=== PATIENT | female | born 1955 | race Caucasian/White ===

== ENCOUNTER 2017-07-13 12:34 | Emergency (ER) | payer OTHER ==
[2017-07-13] MEDS ORDERED: IPRATROPIUM-ALBUTEROL 3 ML NEB INHALATION STA (13:42)
[2017-07-13] MEDS ORDERED: SODIUM CHLORIDE 0.9% 1,000 ML IV STA (13:42)
[2017-07-13] MEDS ORDERED: IBUPROFEN 600 MG TAB PO STA (13:43)
[2017-07-13] MEDS ORDERED: ACETAMINOPHEN TAB 500 MG TAB PO STA (13:43)
--- NOTE | 2017-07-13 13:44 | ED ---
Headache HPI - General Chief Complaint: Headache Stated Complaint: cough/headache/fever Time Seen by Provider: 07/13/17 13:11 Source: RN notes reviewed, old records reviewed Mode of arrival: ambulatory Limitations: no limitations - History of Present Illness Initial Comments: This patient 62-year-old female with multiple chief complaints. Patient reports that she's had a headache, sinus congestion, slight cough and some right side pain. Patient reports that when she is sleeping less and she had pain when she was laying on the right side. She is out of the pain is related to coughing. She states that she has had no recent Motrin or Tylenol. She reports that a couple episodes of diarrhea earlier. - Related Data Home Medications Medication Instructions Recorded Confirmed Alendronate Sodium [Fosamax] 70 mg PO SA 03/07/16 07/13/17 Atorvastatin Calcium [Lipitor] 20 mg PO SA 03/07/16 07/13/17 Ergocalciferol [Vitamin D2] 50,000 unit PO SA 03/07/16 07/13/17 Previous Rx's Medication Instructions Recorded Albuterol Inhaler [Ventolin Hfa 1 - 2 puff INHALATION Q6HR PRN #1 07/13/17 Inhaler] inhaler Levofloxacin [Levaquin] 750 mg PO DAILY #7 tab 07/13/17 Promethazine/Dextromethorphan 5 ml PO TID PRN #120 ml 07/13/17 [Phenergan DM Syrup] Allergies Allergy/AdvReac Type Severity Reaction Status Date / Time adhesive Allergy Rash/Hives Verified 07/13/17 12:56 bacitracin Allergy Rash/Hives Verified 07/13/17 12:56 [From Neosporin ([id number])] bacitracin zinc Allergy Rash/Hives Verified 07/13/17 12:56 [From Neosporin ([id number])] neomycin sulfate Allergy Rash/Hives Verified 07/13/17 12:56 [From Neosporin ([id number])] polymyxin B Allergy Rash/Hives Verified 07/13/17 12:56 [From Neosporin ([id number])] sulfamethoxazole Allergy Rash/Hives Verified 07/13/17 12:56 [From Bactrim] trimethoprim [From Bactrim] Allergy Rash/Hives Verified 07/13/17 12:56 Review of Systems ROS Statement: Those systems with pertinent positive or pertinent negative responses have been documented in the HPI. ROS Other: All systems not noted in ROS Statement are negative. Past Medical History Past Medical History: Asthma, COPD, Hyperlipidemia, Liver Disease, Osteoarthritis (OA), Rheumatoid Arthritis (RA) Additional Past Medical History / Comment(s): hx migraines, varicose veins, "fatty liver", gallstones, History of Any Multi-Drug Resistant Organisms: None Reported Past Surgical History: Breast Surgery, Section, Cholecystectomy, Orthopedic Surgery Additional Past Surgical History / Comment(s): june carpal tunnel, left breast lumpectomy, Past Anesthesia/Blood Transfusion Reactions: Motion Sickness Past Psychological History: No Psychological Hx Reported Smoking Status: Former smoker Past Alcohol Use History: None Reported Past Drug Use History: None Reported - Past Family History Mother Family Medical History: Cancer General Exam - General Exam Comments Initial Comments: This patient is 62-year-old female. No distress. Limitations: no limitations General appearance: alert, in no apparent distress Head exam: Present: atraumatic, normocephalic, normal inspection Eye exam: Present: normal appearance, PERRL, EOMI. Absent: scleral icterus, conjunctival injection, periorbital swelling ENT exam: Present: normal exam, mucous membranes moist Neck exam: Present: normal inspection. Absent: tenderness, meningismus, lymphadenopathy Respiratory exam: Present: normal lung sounds bilaterally. Absent: respiratory distress, wheezes, rales, rhonchi, stridor Cardiovascular Exam: Present: regular rate, normal rhythm, normal heart sounds, other (Right-sided chest wall tenderness.). Absent: systolic murmur, diastolic murmur, rubs, gallop, clicks GI/Abdominal exam: Present: soft, normal bowel sounds. Absent: distended, tenderness, guarding, rebound, rigid Back exam: Present: normal inspection Neurological exam: Present: alert, oriented X3, CN II-XII intact Psychiatric exam: Present: normal affect, normal mood Course Vital Signs 07/13/17 07/13/17 07/13/17 12:42 14:00 14:09 Temperature 99.4 F Pulse Rate 85 80 84 Respiratory 18 Rate Blood Pressure 121/67 O2 Sat by Pulse 97 Oximetry 07/13/17 07/13/17 07/13/17 15:09 15:50 16:34 Temperature 98.5 F Pulse Rate 76 72 68 Respiratory 20 18 18 Rate Blood Pressure 94/50 96/52 126/62 O2 Sat by Pulse 96 95 95 Oximetry Medical Decision Making - Medical Decision Making 62 year old with headache, cough, congestion, right side pain for 2 days. Patient has a productive cough, given breathing treatment, patient was given IV fluids and labs obtained. Patient CXR shows right sided pneumonia, likely source of patient pain with pleurisy. Patient labs were unremarkable, and patient was given IV Rocephin for pneumonia. Patient will be discharged with Levaquin and prompt follow up with PCP. Return parameters discussed. - Lab Data Result diagrams: 07/13/17 13:36 07/13/17 13:36 Lab Results 07/13/17 07/13/17 07/13/17 Range/Units 13:36 13:36 13:36 WBC 5.8 (3.8-10.6) k/uL RBC 4.51 (3.80-5.40) m/uL Hgb 12.6 (11.4-16.0) gm/dL Hct 39.1 (34.0-46.0) % MCV 86.7 (80.0-100.0) fL MCH 28.0 (25.0-35.0) pg MCHC 32.3 (31.0-37.0) g/dL RDW 13.2 (11.5-15.5) % Plt Count 233 (150-450) k/uL Neutrophils % 64 % Lymphocytes % 24 % Monocytes % 8 % Eosinophils % 2 % Basophils % 0 % Neutrophils # 3.7 (1.3-7.7) k/uL Lymphocytes # 1.4 (1.0-4.8) k/uL Monocytes # 0.4 (0-1.0) k/uL Eosinophils # 0.1 (0-0.7) k/uL Basophils # 0.0 (0-0.2) k/uL Sodium 140 (137-145) mmol/L Potassium 4.0 (3.5-5.1) mmol/L Chloride 105 (98-107) mmol/L Carbon Dioxide 25 (22-30) mmol/L Anion Gap 10 mmol/L BUN 11 (7-17) mg/dL Creatinine 0.97 (0.52-1.04) mg/dL Est GFR (CKD-EPI)AfAm 72 (>60 ml/min/1.73 sqM) Est GFR (CKD-EPI)NonAf 62 (>60 ml/min/1.73 sqM) Glucose 93 (74-99) mg/dL Calcium 9.3 (8.4-10.2) mg/dL Total Bilirubin 0.5 (0.2-1.3) mg/dL AST 33 (14-36) U/L ALT 31 (9-52) U/L Alkaline Phosphatase 110 (38-126) U/L Troponin I <0.012 (0.000-0.034) ng/mL Total Protein 7.2 (6.3-8.2) g/dL Albumin 3.9 (3.5-5.0) g/dL Urine Color Urine Appearance (Clear) Urine pH (5.0-8.0) Ur Specific [place] (1.001-1.035) Urine Protein (Negative) Urine Glucose (UA) (Negative) Urine Ketones (Negative) Urine Blood (Negative) Urine Nitrite (Negative) Urine Bilirubin (Negative) Urine Urobilinogen (<2.0) mg/dL Ur Leukocyte Esterase (Negative) Urine RBC (0-5) /hpf Urine WBC (0-5) /hpf Ur Squamous Epith Cells (0-4) /hpf Influenza Type A RNA (Not Detectd) Influenza Type B (PCR) (Not Detectd) 07/13/17 07/13/17 Range/Units 14:01 14:01 WBC (3.8-10.6) k/uL RBC (3.80-5.40) m/uL Hgb (11.4-16.0) gm/dL Hct (34.0-46.0) % MCV (80.0-100.0) fL MCH (25.0-35.0) pg MCHC (31.0-37.0) g/dL RDW (11.5-15.5) % Plt Count (150-450) k/uL Neutrophils % % Lymphocytes % % Monocytes % % Eosinophils % % Basophils % % Neutrophils # (1.3-7.7) k/uL Lymphocytes # (1.0-4.8) k/uL Monocytes # (0-1.0) k/uL Eosinophils # (0-0.7) k/uL Basophils # (0-0.2) k/uL Sodium (137-145) mmol/L Potassium (3.5-5.1) mmol/L Chloride (98-107) mmol/L Carbon Dioxide (22-30) mmol/L Anion Gap mmol/L BUN (7-17) mg/dL Creatinine (0.52-1.04) mg/dL Est GFR (CKD-EPI)AfAm (>60 ml/min/1.73 sqM) Est GFR (CKD-EPI)NonAf (>60 ml/min/1.73 sqM) Glucose (74-99) mg/dL Calcium (8.4-10.2) mg/dL Total Bilirubin (0.2-1.3) mg/dL AST (14-36) U/L ALT (9-52) U/L Alkaline Phosphatase (38-126) U/L Troponin I (0.000-0.034) ng/mL Total Protein (6.3-8.2) g/dL Albumin (3.5-5.0) g/dL Urine Color Light Yellow Urine Appearance Clear (Clear) Urine pH 6.5 (5.0-8.0) Ur Specific [place] 1.005 (1.001-1.035) Urine Protein Negative (Negative) Urine Glucose (UA) Negative (Negative) Urine Ketones Negative (Negative) Urine Blood Negative (Negative) Urine Nitrite Negative (Negative) Urine Bilirubin Negative (Negative) Urine Urobilinogen <2.0 (<2.0) mg/dL Ur Leukocyte Esterase Small H (Negative) Urine RBC 3 (0-5) /hpf Urine WBC 2 (0-5) /hpf Ur Squamous Epith Cells 2 (0-4) /hpf Influenza Type A RNA Not Detected (Not Detectd) Influenza Type B (PCR) Not Detected (Not Detectd) 07/13/17 14:49 EKG performed at 1411 shows normal sinus rhythm, normal EKG noted. Ventricular rate 78 beats were minute. DE interval 120 ms. QRS ration a formal 6. QT QTC 392/446 most seconds. - Radiology Data Radiology results: report reviewed Suspicious posterior right lower lobe new minute infiltrate. Disposition Clinical Impression: Pneumonia Disposition: HOME SELF-CARE Condition: Good Instructions: Pneumonia (ED) Additional Instructions: Patient is to follow-up on Saturday morning with primary care provider. Rest, remain hydrated. Take the antibiotics as prescribed. Return to the emergency department if any alarming signs or symptoms occur. Prescriptions: Albuterol Inhaler [Ventolin Hfa Inhaler] 1 - 2 puff INHALATION Q6HR PRN #1 inhaler PRN Reason: Cough Levofloxacin [Levaquin] 750 mg PO DAILY #7 tab Promethazine/Dextromethorphan [Phenergan DM Syrup] 5 ml PO TID PRN #120 ml PRN Reason: Cough Referrals: Elizabeth Esquivel DO [Primary Care Provider] - 1-2 days Time of Disposition: 16:04
[2017-07-13 13:54] LABS: Basophils % (A) 0 %; Eosinophils # (A) 0.1 k/uL (0-0.7); Eosinophils % (A) 2 %; HCT 39.1 % (34.0-46.0); HGB 12.6 gm/dL (11.4-16.0); Lymphocytes # (A) 1.4 k/uL (1.0-4.8); Lymphocytes % (A) 24 %; MCHC 32.3 g/dL (31.0-37.0); MCV 86.7 fL (80.0-100.0); Mean Platelet Volume 8.2; Monocytes # (A) 0.4 k/uL (0-1.0); Monocytes % (A) 8 %; Neutrophils # (A) 3.7 k/uL (1.3-7.7); Neutrophils % (A) 64 %; Platelet Count 233 k/uL (150-450); RBC 4.51 m/uL (3.80-5.40); RDW 13.2 % (11.5-15.5); WBC 5.8 k/uL (3.8-10.6)
[2017-07-13 14:02] LABS: Albumin 3.9 g/dL (3.5-5.0); Calcium 9.3 mg/dL (8.4-10.2); Total Bilirubin 0.5 mg/dL (0.2-1.3); Total Protein 7.2 g/dL (6.3-8.2)
[2017-07-13 14:14] LABS: Appearance,Urine Clear (Clear); Bilirubin,Urine Negative (Negative); Blood,Urine Negative (Negative); Color,Urine Light Yellow; Glucose,Urine (UA) Negative (Negative); Ketones,Urine Negative (Negative); Leukocyte Esterase,Urine Small (Negative); Nitrite,Urine Negative (Negative); PH, Urine 6.5 (5.0-8.0); Protein,Urine Negative (Negative); RBC,Urine 3 /hpf (0-5); Specific Gravity,Urine 1.005 (1.001-1.035); Squamous Epithelial Cell,Urine 2 /hpf (0-4); Urobilinogen,Urine <2.0 mg/dL (<2.0); WBC,Urine 2 /hpf (0-5)
--- NOTE | 2017-07-13 14:39 | XR ---
EXAMINATION TYPE: XR chest 2V DATE OF EXAM: 07/13/2017 COMPARISON: NONE HISTORY: Cough and fever. TECHNIQUE: Frontal and lateral views of the chest are obtained. FINDINGS: There is suspicious posterior right lower lobe opacity confirmed on 2 views. Left lung is clear. No pleural effusion or pneumothorax is seen bilaterally. The cardiac silhouette size is withi n normal limits. The osseous structures are intact. IMPRESSION: Suspicious posterior right lower lobe pneumonic infiltrate.
[2017-07-13] MEDS ORDERED: cefTRIAXone IN SWFI 1,000 MG/10 ML SYRINGE IVP STA (14:53)
[2017-07-13] MEDS ORDERED: methylPREDNISolone SOD SUCCI 125 MG/2 ML VIAL IV STA (15:02)
[2017-07-13 15:10] VITALS: TEMP 98.5
[2017-07-13 15:51] VITALS: RESP 18
[2017-07-13 16:35] VITALS: BP 126/62; PULSE 68
== END 2017-07-13 16:35 | disposition home or self-care (01) ==
LOC: EC 12:34
DX: J18.9 Pneumonia, unspecified organism (principal); R51 Headache; R09.81 Nasal congestion; R19.7 Diarrhea, unspecified; E78.5 Hyperlipidemia, unspecified; Z87.891 Personal history of nicotine dependence; Z79.899 Other long term (current) drug therapy; Z88.1 Allergy status to other antibiotic agents; Z91.09 Other allergy status, other than to drugs and biological substances
CPT/HCPCS: 36415; 94640; 93005; 80053; 84484; 85025; 81001; 87040; 87502; 71046; 99284; 96374; 96375; 96361; J2930; J0696

== ENCOUNTER → 2019-12-02 | Outpatient (CLI) | payer MEDICARE ==
[2019-12-02 11:18] LABS: Basophils % (A) 1 %; Eosinophils # (A) 0.2 k/uL (0-0.7); Eosinophils % (A) 4 %; HCT 39.2 % (34.0-46.0); HGB 12.8 gm/dL (11.4-16.0); Lymphocytes # (A) 1.1 k/uL (1.0-4.8); Lymphocytes % (A) 22 %; MCH 28.4 pg (25.0-35.0); MCHC 32.7 g/dL (31.0-37.0); MCV 86.6 fL (80.0-100.0); Mean Platelet Volume 8.3; Monocytes # (A) 0.4 k/uL (0-1.0); Monocytes % (A) 7 %; Neutrophils # (A) 3.3 k/uL (1.3-7.7); Neutrophils % (A) 65 %; Platelet Count 226 k/uL (150-450); RBC 4.52 m/uL (3.80-5.40); RDW 13.8 % (11.5-15.5); WBC 5.2 k/uL (3.8-10.6)
== END | disposition home or self-care (01) ==
LOC: LABPAT 09:53
PROVIDERS: ATTEND Surgery
DX: Z01.818 Encounter for other preprocedural examination (principal); K43.0 Incisional hernia with obstruction, without gangrene
CPT/HCPCS: 36415; 85025; 86850; 86900; 86901; 93005

== ENCOUNTER 2019-12-09 06:53 | Day surgery (SDC) | payer MEDICARE ==
[2019-12-03 12:59] VITALS: BMI 34.0
[~2019-12-09 06:53] MED LIST: ACETAMINOPHEN TAB 500 MG TAB PO ONE; HEPARIN SODIUM,PORCINE 5,000 UNIT/ML 1 ML VIAL SQ ONE; LACTATED RINGERS 1,000 ML IV SCH; ONDANSETRON 4 MG/2 ML VIAL IVP ONE
[2019-12-09] MEDS ORDERED: ACETAMINOPHEN TAB 500 MG TAB ONE (07:18)
[2019-12-09] MEDS ORDERED: HEPARIN SODIUM,PORCINE 5,000 UNIT/ML 1 ML VIAL ONE (07:18)
[2019-12-09] MEDS ORDERED: ONDANSETRON 4 MG/2 ML VIAL ONE (07:18)
[2019-12-09] MEDS ORDERED: DEXAMETHASONE SOD PHOSPHATE 10 MG/ML 1 ML VIAL IV ONE (07:39)
--- NOTE | 2019-12-09 08:23 | P.GSHP ---
History of Present Illness H&P Date: 12/09/19 Chief Complaint: Incisional hernia This is a 64-year-old female who has developed an incisional hernia related to laparoscopic cholecystectomy. Patient presents today for laparoscopic robotic- assisted repair. Past Medical History Past Medical History: Asthma, COPD, Hyperlipidemia, Liver Disease, Osteoarthritis (OA), Rheumatoid Arthritis (RA) Additional Past Medical History / Comment(s): hx migraines, varicose veins, "fatty liver", osteoporosis History of Any Multi-Drug Resistant Organisms: None Reported Past Surgical History: Breast Surgery, Section, Cholecystectomy, Orthopedic Surgery Additional Past Surgical History / Comment(s): june carpal tunnel, left breast lumpectomy, left hand index middle trigger finger, right hand, ring and middle trigger finger Past Anesthesia/Blood Transfusion Reactions: Motion Sickness Smoking Status: Former smoker - Past Family History Mother Family Medical History: Cancer Medications and Allergies Home Medications Medication Instructions Recorded Confirmed Type Alendronate Sodium [Fosamax] 70 mg PO SA 03/07/16 12/03/19 History Atorvastatin Calcium [Lipitor] 20 mg PO SA 03/07/16 12/03/19 History Albuterol Inhaler (Mhu) [Ventolin 1 - 2 puff INHALATION Q6HR PRN #1 07/13/17 12/03/19 Rx Hfa Inhaler (Mhu)] inhaler Cyclobenzaprine [Flexeril] 10 mg PO HS 12/02/19 12/03/19 History Loratadine [Claritin] 10 mg PO DAILY 12/02/19 12/03/19 History PARoxetine [Paxil] 10 mg PO DAILY 12/02/19 12/03/19 History Allergies Allergy/AdvReac Type Severity Reaction Status Date / Time adhesive Allergy Rash/Hives Verified 12/09/19 07:16 bacitracin Allergy Rash/Hives Verified 12/09/19 07:16 [From Neosporin ([id number])] bacitracin zinc Allergy Rash/Hives Verified 12/09/19 07:16 [From Neosporin ([id number])] neomycin sulfate Allergy Rash/Hives Verified 12/09/19 07:16 [From Neosporin ([id number])] polymyxin B Allergy Rash/Hives Verified 12/09/19 07:16 [From Neosporin ([id number])] sulfamethoxazole Allergy Rash/Hives Verified 12/09/19 07:16 [From Bactrim] trimethoprim [From Bactrim] Allergy Rash/Hives Verified 12/09/19 07:16 cortisone AdvReac rash @ Verified 12/09/19 07:16 injection site Surgical - Exam Vital Signs Temp Pulse Resp BP Pulse Ox 97.1 F L 77 14 133/82 99 12/09/19 07:16 12/09/19 07:16 12/09/19 07:16 12/09/19 07:16 12/09/19 07:16 - General well developed, well nourished, no distress - Eyes PERRL - ENT normal pinna - Neck no masses - Respiratory normal expansion - Cardiovascular Rhythm: regular - Abdomen Abdomen: soft, non tender Assessment and Plan Assessment: Incisional hernia. We'll perform laparoscopic robotic-assisted repair.
[2019-12-09] MEDS ORDERED: MIDAZOLAM 2 MG/2 ML VIAL ONE (08:49)
[2019-12-09] MEDS ORDERED: SUCCINYLCHOLINE CHLORIDE 100 MG/5 ML SYR IV ONE (08:49)
[2019-12-09] MEDS ORDERED: fentaNYL (PF) 50 MCG/ML 2 ML AMP ONE (08:49)
[2019-12-09] MEDS ORDERED: ROCURONIUM BROMIDE 10 MG/ML 5 ML VIAL IV ONE (08:49)
[2019-12-09] MEDS ORDERED: KETOROLAC 30 MG/ML 1 ML VIAL ONE (08:49)
[2019-12-09] MEDS ORDERED: GLYCOPYRROLATE 0.2 MG/ML 2 ML VIAL ONE (08:49)
[2019-12-09] MEDS ORDERED: NEOSTIGMINE 1 MG/ML 10 ML VIAL ONE (08:49)
[2019-12-09] MEDS ORDERED: LIDOCAINE 1% INJ 10MG/ML (20 ML MDV) ONE (08:49)
[2019-12-09] MEDS ORDERED: PROPOFOL 10 MG/ML 20 ML VIAL IV ONE (08:49)
[2019-12-09] MEDS ORDERED: KETAMINE 10 MG/ML 20 ML VIAL ONE (08:49)
[2019-12-09] MEDS ORDERED: LIDOCAINE 1%-EPI 1:100,000 20 ML VIAL SQ ONE ×2 (09:22)
[2019-12-09] MEDS ORDERED: LACTATED RINGERS 1,000 ML IV ONE (09:40)
--- NOTE | 2019-12-09 09:48 | P.OP ---
Date of Procedure: 12/09/19 Preoperative Diagnosis: Incisional hernia Postoperative Diagnosis: Incisional hernia Procedure(s) Performed: Laparoscopic robotic-assisted repair of incarcerated incisional hernia Anesthesia: WOLF Surgeon: Roberto Batres Estimated Blood Loss (ml): 5 Pathology: none sent Condition: stable Disposition: PACU Description of Procedure: The patient was placed on the operating table in the supine position. He received general anesthesia. His abdomen was prepped and draped usual fashion. The skin incision was made at the umbilicus. Using a pair of Jesús clamps the fascia was grasped and a Veress needles placed into the peritoneal cavity. Position there is no discomfort with positive drop test. After adequate insufflation the laparoscope was placed into the peritoneal cavity the through a 5 mm trocar. A 8 mm robotic trochars placed in the right lower and left lower quadrant. The initial 5 mm trocar was exchanged for a 12 mm robotic trocar. The incisional hernia was visualized. The hernias located the epigastric area. The incisional hernia was visualized. Using hook cautery the peritoneum over the incisional hernia was excised. The fascial opening was repaired using 0V LOC suture. Next a piece of 11 cm round ventral light ST mesh was placed into the. Cavity and secured with 2 OV lock suture. The patient was undocked the robot. The needles were retrieved. The fascia of the 12 mm trocar site was closed with 0 Ethibond suture. Skin was closed interrupted 3-0 Monocryl suture. Dermabond dressings was applied. Patient tolerated procedure well and was sent to recovery room stable condition.
[2019-12-09 10:12] VITALS: TEMP 96.8
[2019-12-09] MEDS: HYDROmorphone 0.5 MG/0.5 ML SYRINGE IVP PRN ×4 (10:41→11:12)
[2019-12-09 11:57] VITALS: RESP 16
[2019-12-09] MEDS ORDERED: HYDROcodone/APAP 5-325MG 1 EACH TAB ONE (11:59)
[2019-12-09] MEDS ORDERED: HYDROcodone/APAP 5-325MG 1 EACH TAB PO ONE (12:00)
[2019-12-09 12:40] VITALS: BP 119/76; PULSE 87
== END 2019-12-09 13:10 | disposition home or self-care (01) ==
LOC: OR 06:53
PROVIDERS: ATTEND Surgery
DX: K43.0 Incisional hernia with obstruction, without gangrene (principal); E78.5 Hyperlipidemia, unspecified; J44.9 Chronic obstructive pulmonary disease, unspecified; M06.9 Rheumatoid arthritis, unspecified; G43.909 Migraine, unspecified, not intractable, without status migrainosus; K76.0 Fatty (change of) liver, not elsewhere classified; M81.0 Age-related osteoporosis without current pathological fracture; I83.90 Asymptomatic varicose veins of unspecified lower extremity; Z91.048 Other nonmedicinal substance allergy status; Z88.2 Allergy status to sulfonamides; Z88.1 Allergy status to other antibiotic agents; Z88.8 Allergy status to other drugs, medicaments and biological substances; Z79.899 Other long term (current) drug therapy; Z90.49 Acquired absence of other specified parts of digestive tract; Z98.890 Other specified postprocedural states; Z87.891 Personal history of nicotine dependence; Z80.9 Family history of malignant neoplasm, unspecified
CPT/HCPCS: 86900; 86901; 86850; 49655; C1781; J2250; J1644; J1100; J2710; J0690; J2405; J2001; J3010; J1885; J0330; J2704; J1170

== ENCOUNTER → 2020-11-04 | Outpatient (CLI) | payer MEDICARE ==
--- NOTE | 2020-11-09 14:25 | MM ---
Reason for exam: screening (asymptomatic). Last mammogram was performed 4 years and 9 months ago. History: Patient is postmenopausal. Benign excisional biopsy of the left breast. Physical Findings: A clinical breast exam by your physician is recommended on an annual basis and results should be correlated with mammographic findings. MG 3D Screening Mammo W/Cad Bilateral CC and MLO view(s) were taken. Prior study comparison: February 06, 2016, bilateral MG screening mammo w CAD. There are scattered fibroglandular densities. No persisting abnormality on 3D images. No significant changes when compared with prior studies. ASSESSMENT: Benign, BI-RAD 2 RECOMMENDATION: Routine screening mammogram of both breasts in 1 year.
== END | disposition home or self-care (01) ==
LOC: RADMAMWWP 08:29
PROVIDERS: ATTEND Family Medicine
DX: Z12.31 Encounter for screening mammogram for malignant neoplasm of breast (principal); Z78.0 Asymptomatic menopausal state
CPT/HCPCS: 77063; 77067

== ENCOUNTER → 2021-03-02 | Outpatient (CLI) | payer MEDICARE ==
[~2021-03-02] MED LIST changes: -ACETAMINOPHEN TAB 500 MG TAB PO ONE; +DENOSUMAB 60 MG/ML 1 ML SYRINGE SQ NR; -HEPARIN SODIUM,PORCINE 5,000 UNIT/ML 1 ML VIAL SQ ONE; -LACTATED RINGERS 1,000 ML IV SCH; -ONDANSETRON 4 MG/2 ML VIAL IVP ONE
[2021-03-02 14:05] VITALS: BP 118/69; PULSE 88; RESP 16; TEMP 98.6
== END ==
LOC: PROCWHC3 13:53
PROVIDERS: ATTEND Physician Assistant Medical
DX: M81.0 Age-related osteoporosis without current pathological fracture (principal); Z91.048 Other nonmedicinal substance allergy status; Z88.2 Allergy status to sulfonamides; Z88.1 Allergy status to other antibiotic agents; Z88.8 Allergy status to other drugs, medicaments and biological substances; Z87.891 Personal history of nicotine dependence
CPT/HCPCS: 96372; J0897

== ENCOUNTER → 2021-12-05 | Outpatient (CLI) | payer MEDICARE ==
--- NOTE | 2021-12-06 07:14 | MM ---
Reason for Exam: Screening (asymptomatic). Last mammogram was performed 1 year(s) and 1 month(s) ago. Patient History: Menarche at age 10. First Full-Term at age 17. Postmenopausal. Benign Excisional Biopsy on the left side. Risk Values: Jazmyn 5 year model risk: 1.5%. NCI Lifetime model risk: 4.8%. Prior Study Comparison: 11/10/2014 Bilateral Screening Mammogram, [facility]. 02/06/2016 Bilateral Screening Mammogram, [facility]. 11/04/2020 Bilateral Screening Mammogram, [facility]. Tissue Density: There are scattered fibroglandular densities. Findings: Analyzed By CAD. Lateral asymmetric density right breast anterior to middle depth have become more defined. Overall appearance on the MLO view is similar. Further evaluation is recommended. Otherwise, no significant change. Overall Assessment: Incomplete: need additional imaging evaluation, BI-RAD 0 Management: Special View Mammogram of the right breast. 1. Additional views right breast to include spot 3-D CC, 3-D CC rolled medial, spot 3-D MLO, and 3-D ML views. 2. Targeted right breast ultrasound if any persisting abnormality. [facility] will attempt to contact patient to return for supplemental views and ultrasound if indicated. Electronically signed and approved by: Machelle Mar M.D. Radiologist
== END | disposition home or self-care (01) ==
LOC: RADMAMWWP 07:28
PROVIDERS: ATTEND Family Medicine
DX: Z12.31 Encounter for screening mammogram for malignant neoplasm of breast (principal); Z78.0 Asymptomatic menopausal state
CPT/HCPCS: 77067

== ENCOUNTER → 2021-12-15 | Outpatient (CLI) | payer MEDICARE ==
--- NOTE | 2021-12-15 15:50 | MM ---
Reason for Exam: Additional evaluation requested from abnormal screening. Last screening mammogram was performed less than 1 month ago. Patient History: Menarche at age 10. First Full-Term at age 17. Postmenopausal. Benign Excisional Biopsy on the left side. Risk Values: Jazmyn 5 year model risk: 1.5%. NCI Lifetime model risk: 4.8%. Prior Study Comparison: 02/06/2016 Bilateral Screening Mammogram, [facility]. 11/04/2020 Bilateral Screening Mammogram, [facility]. 12/05/2021 Bilateral MG screening mammo w CAD, [facility]. Tissue Density: Right: The breast tissue is heterogeneously dense. This may lower the sensitivity of mammography. Findings: Analyzed By CAD. Nodular density persists upper outer quadrant right breast 4.2 cm from the nipple and measuring approximately 8 mm. Overall Assessment: Incomplete: need additional imaging evaluation, BI-RAD 0 Management: Diagnostic Breast Ultrasound of the right breast. A clinical breast exam by your physician is recommended on an annual basis and results should be correlated with mammographic findings. This exam should not preclude additional follow-up of suspicious palpable abnormalities. Results were given to the patient verbally at the time of exam. Electronically signed and approved by: Tony Heath M.D. Radiologis
--- NOTE | 2021-12-15 15:50 | USB ---
Reason for Exam: Additional evaluation requested from abnormal screening. Patient History: Menarche at age 10. First Full-Term at age 17. Postmenopausal. Benign Excisional Biopsy on the left side. Risk Values: Jazmyn 5 year model risk: 1.5%. NCI Lifetime model risk: 4.8%. Prior Study Comparison: 02/06/2016 Bilateral Screening Mammogram, [facility]. 11/04/2020 Bilateral Screening Mammogram, [facility]. 12/05/2021 Bilateral MG screening mammo w CAD, [facility]. Findings: The upper outer quadrant of the right breast, the axilla of the right breast and the retroareolar of the right breast were scanned. 6 mm hypoechoic area 11:00 right breast. Six-month follow-up advised. Overall Assessment: Probably benign, BI-RAD 3 Management: Diagnostic Breast Ultrasound of the right breast in 6 months. A clinical breast exam by your physician is recommended on an annual basis and results should be correlated with mammographic findings. Electronically signed and approved by: Tony Heath M.D. Radiologis
== END | disposition home or self-care (01) ==
LOC: RADMAMWWP 10:22
PROVIDERS: ATTEND Family Medicine
DX: Z12.31 Encounter for screening mammogram for malignant neoplasm of breast (principal); R92.8 Other abnormal and inconclusive findings on diagnostic imaging of breast; Z78.0 Asymptomatic menopausal state
CPT/HCPCS: 77065

== ENCOUNTER → 2022-08-02 | Day surgery (SDC) | payer MEDICARE ==
--- NOTE | 2022-08-08 10:52 | MM ---
Reason for Exam: Post Procedure Mammogram. Last screening mammogram was performed 7 month(s) ago. Patient History: Menarche at age 10. First Full-Term at age 17. Postmenopausal. Benign Excisional Biopsy on the left side. Risk Values: Jazmyn 5 year model risk: 1.5%. NCI Lifetime model risk: 4.5%. Prior Study Comparison: 11/04/2020 Bilateral Screening Mammogram, [facility]. 12/05/2021 Bilateral MG screening mammo w CAD, [facility]. 12/15/2021 Right MG work up mamm w CAD RT, [facility]. Tissue Density: Right: There are scattered fibroglandular densities. Pathology Description: Location: 11 o'clock. Marker Left Behind. Needle Type: Mammotome Cores: 3 The procedure of ultrasound guided core biopsy was explained to the patient. Benefits, alternatives, and risks were discussed. An informed consent was then obtained. The patient was placed in supine positioning for imaging and for the procedure. The overlying skin was prepped and draped in usual sterile fashion. Lidocaine buffered with bicarbonate was used as anesthetic into the skin and subcutaneous tissue up to area of concern in the right breast. A brittany was made with surgical scalpel. Under ultrasound guidance, a 12-gauge vacuum assisted biopsy gun device was used to obtain 3 core samples. Following this, a biopsy clip was left in lesion. The patient tolerated the procedure well without any immediate complication. The patient was kept in the radiology department for short stay after the procedure and then discharged home in stable condition. Postprocedure mammogram: The patient was transferred to mammography for physician ordered post procedure mammogram for clip placement verification. Impression: Uncomplicated ultrasound guided core biopsy of area of concern in the right breast, full pathology results to follow. It should be noted that the biopsy clips from 1.0 cm from nodular density seen on 12/05/2021. Correlate with rad Path correlation consider short-term follow-up with 3-D imaging. Pathology Results: Result: High risk, Complex sclerosing lesion. RIGHT BREAST, 11:00, ULTRASOUND GUIDED NEEDLE CORE BIOPSY: Proliferative fibrocystic changes including features consistent with radial scar/complex sclerosing lesion and moderate usual type ductal hyperplasia. Overall Assessment: High risk Assessment: MG diagnostic mammo RT wo CAD - Right: Suspicious, BI-RAD 4. Management: Surgical Consultation of the right breast. Needle Localization of the right breast. Electronically signed and approved by: Malcolm Mendez, DO
== END ==
LOC: RADUSWWP 09:40
PROVIDERS: ATTEND Family Medicine
DX: N62 Hypertrophy of breast (principal)
CPT/HCPCS: 88305; 77065; 19083; 19084; A4648

== ENCOUNTER → 2022-10-11 | Outpatient (CLI) | payer MEDICARE ==
--- NOTE | 2022-10-11 09:21 | P.GSHP ---
History of Present Illness H&P Date: 10/11/22 Chief Complaint: radial scar right breast Jeimy is a 67 year old female seen in consultation for Yolanda Mann regarding a core biopsy of hte right bresat showing a radial scar. She had a bilateral mammogram on 12-05-21 which led to a right breast ultrasound and right d iagnostic mammogram. a 6 mm lesioin was noted and 3 month follow up was recommended. She had a repeat right breast ultrasound on 07-12-22 which showed the lesion had increased to 6 mm in on dimension from 4 mm. A core biopsy was done showing a radial scar. The patient does not feel any lumps masses or nodules of concern in either breast. She tolerated the biopsy without difficulty. She did have a left breast biopsy many years ago for calcium deposits this was not cancer. She is not complaining of any recent trauma or infection in the breast. She is not complaining of any nipple discharge or skin changes. Caffeine: 12 cup/day nicotine:stopped 7 years ago, used to smoke 1 1/2 PPD for 40 years chocolate: daily BCP: 30 years Family History: mother: colon cancer at 57 son: leukemia brother: pancreatic cancer nephew: melanoma bottom of foot niece: breast cancer Hormonal History: menarche: 8 M1 breat fed: no, age at first : 18 menopause: 38 hormones: none Surgical History; gallbladder hernia all teeth removed left breast biopsy Medical History: high cholesterol COPD/asthma arthritis Social History: nicotine: as above alcohol: none drugs: none - Constitutional Constitutional: Denies chills, Denies fever - EENT Eyes: denies blurred vision, denies pain Ears: deny: decreased hearing, tinnitus Ears, nose, mouth and throat: Denies headache, Denies sore throat - Breasts Breasts: bilateral: as per HPI - Cardiovascular Cardiovascular: Reports shortness of breath, Denies chest pain - Respiratory Respiratory: Denies cough, Denies 7 - Gastrointestinal Gastrointestinal: Denies abdominal pain, Denies diarrhea, Denies nausea, Denies vomiting - Genitourinary (Female) Genitourinary: Denies dysuria, Denies hematuria - Menstruation Menstruation: Reports postmenopausal - Musculoskeletal Musculoskeletal: Reports myalgias - Integumentary Integumentary: Denies pruritus, Denies rash - Neurological Neurological: Denies numbness, Denies weakness - Psychiatric Psychiatric: Reports anxiety, Reports depression - Endocrine Endocrine: Denies fatigue, Denies weight change - Hematologic/Lymphatic Comment: none - Allergic/Immunologic Allergic/Immunologic: Reports as per HPI, Reports seasonal allergies Past Medical History Past Medical History: Asthma, COPD, Hyperlipidemia, Liver Disease, Osteoarthritis (OA), Rheumatoid Arthritis (RA) Additional Past Medical History / Comment(s): varicose veins, "fatty liver", osteoporosis History of Any Multi-Drug Resistant Organisms: None Reported Past Surgical History: Breast Surgery, Section, Cholecystectomy, Hernia Repair, Orthopedic Surgery Additional Past Surgical History / Comment(s): june carpal tunnel, left breast lumpectomy, left hand index middle trigger finger, right hand, ring and middle trigger finger Past Anesthesia/Blood Transfusion Reactions: Motion Sickness Past Psychological History: No Psychological Hx Reported Smoking Status: Former smoker Past Alcohol Use History: None Reported Additional Past Alcohol Use History / Comment(s): quit smoking 06/2015, smoked for 40 yrs Past Drug Use History: None Reported - Past Family History Mother Family Medical History: Cancer Medications and Allergies Home Medications Medication Instructions Recorded Confirmed Type Alendronate Sodium [Fosamax] 70 mg PO SA 03/07/16 10/11/22 History Atorvastatin Calcium [Lipitor] 20 mg PO SA 03/07/16 10/11/22 History Albuterol Inhaler [Ventolin Hfa 1 - 2 puff INHALATION Q6HR PRN #1 07/13/17 10/11/22 Rx Inhaler] inhaler Loratadine [Claritin] 10 mg PO DAILY 12/02/19 10/11/22 History PARoxetine [Paxil] 10 mg PO DAILY 12/02/19 10/11/22 History Allergies Allergy/AdvReac Type Severity Reaction Status Date / Time adhesive Allergy Rash/Hives Verified 10/11/22 08:51 bacitracin Allergy Rash/Hives Verified 10/11/22 08:51 [From Neosporin ([id number])] bacitracin zinc Allergy Rash/Hives Verified 10/11/22 08:51 [From Neosporin ([id number])] neomycin sulfate Allergy Rash/Hives Verified 10/11/22 08:51 [From Neosporin ([id number])] polymyxin B Allergy Rash/Hives Verified 10/11/22 08:51 [From Neosporin ([id number])] sulfamethoxazole Allergy Rash/Hives Verified 10/11/22 08:51 [From Bactrim] trimethoprim [From Bactrim] Allergy Rash/Hives Verified 10/11/22 08:51 cortisone AdvReac rash @ Verified 10/11/22 08:51 injection site Surgical - Exam - General no distress - Eyes normal ocular movement - ENT no hearing loss - Neck trachea midline - Respiratory normal respiratory effort - Cardiovascular Heart Sounds: normal: S1, S2 - Abdomen Abdomen: soft, non tender, no guarding, no rigid, no rebound - Integumentary normal turgor - Neurologic no disoriented, no combative - Musculoskeletal normal gait, normal posture - Psychiatric oriented to time, oriented to person, oriented to place, speech is normal, memory intact Breast Exam: BRA: does not wear one inspection: Probable cup size approximately C, bilateral grade 3 ptosis Palpation: Right breast: Multi-positional exam no dominant masses or nodules of concern Right axilla: No adenopathy of concern Left breast: Multi-positional exam well-healed scar from prior biopsy, no dominant masses or nodules of concern Left axilla: No adenopathy of concern Results Mammogram reviewed with Dr. Mar, ultrasound reviewed with Dr. Mar Assessment and Plan Assessment: Impression: Abnormal right breast mammogram/[place] [id number] revealing radial scar. Family history of cancer Plan: After review of radiograph with radiology it is recommended that a right breast needle localization via ultrasound be done and resection of the area of concern be performed. Right breast needle localization via ultrasound, possible right breast onco- plastic tissue transfer I discussed the risks and benefits with the patient and her family. Risks include but are not limited to bleeding, infection, and reaction to the anesthetic. If the needle were to move is possible that patient wasn't not be adequately sampled and additional tissue would have to be removed. The patient and her family understand and this will be scheduled for the near future. CC: Yolanda Mann
== END ==
LOC: WWCWWP 08:37
PROVIDERS: ATTEND Surgery
DX: R92.8 Other abnormal and inconclusive findings on diagnostic imaging of breast (principal); Z80.3 Family history of malignant neoplasm of breast; Z80.0 Family history of malignant neoplasm of digestive organs; Z80.6 Family history of leukemia; J44.9 Chronic obstructive pulmonary disease, unspecified; E78.5 Hyperlipidemia, unspecified; M06.9 Rheumatoid arthritis, unspecified; E78.00 Pure hypercholesterolemia, unspecified; Z91.048 Other nonmedicinal substance allergy status; Z88.1 Allergy status to other antibiotic agents; Z88.2 Allergy status to sulfonamides; Z88.8 Allergy status to other drugs, medicaments and biological substances; Z87.891 Personal history of nicotine dependence

== ENCOUNTER → 2023-01-10 | Outpatient (CLI) | payer MEDICARE, OTHER ==
--- NOTE | 2023-01-10 11:04 | MM ---
Reason for Exam: Clinical finding. Last mammogram was performed 1 year(s) and 1 month(s) ago. Patient History: Menarche at age 10. First Full-Term at age 17. Postmenopausal. 08/02/2022, High risk US biopsy breast VAD RT on the right side. Benign Excisional Biopsy on the left side. Risk Values: Jazmyn 5 year model risk: 1.9%. NCI Lifetime model risk: 5.7%. Prior Study Comparison: 02/06/2016 Bilateral Screening Mammogram, [facility]. 11/04/2020 Bilateral Screening Mammogram, [facility]. 12/05/2021 Bilateral MG screening mammo w CAD, [facility]. 12/15/2021 Right US breast workup limited RT, [facility]. 12/15/2021 Right MG work up mamm w CAD RT, [facility]. 07/12/2022 Right US breast limited RT, [facility]. 08/02/2022 Right MG diagnostic mammo RT wo CAD, [facility]. Tissue Density: There are scattered fibroglandular densities. Findings: Analyzed By CAD. Microclip 11-12 o'clock right breast anterior depth redemonstrated. Upper-outer quadrant focal asymmetry remains unchanged. No significant change from prior exams. Overall Assessment: Suspicious, BI-RAD 4 Management: Surgical Consultation of the right breast. Proceed with needle localization and excision for site of biopsy proven high risk radial scar in the right breast. Results were given to the patient verbally at the time of exam. Electronically signed and approved by: Machelle Mar M.D. Radiologist
== END | disposition home or self-care (01) ==
LOC: RADMAMWWP 10:31
PROVIDERS: ATTEND Surgery
DX: R92.8 Other abnormal and inconclusive findings on diagnostic imaging of breast (principal); Z78.0 Asymptomatic menopausal state
CPT/HCPCS: 77062; 77066

== ENCOUNTER 2023-01-15 07:19 | Day surgery (SDC) | payer MEDICARE, OTHER ==
[2023-01-14 09:05] VITALS: BMI 37.6
[~2023-01-15 07:19] MED LIST changes: -DENOSUMAB 60 MG/ML 1 ML SYRINGE SQ NR; +HEPARIN SODIUM,PORCINE/PF 5,000 UNIT/0.5 ML SYRINGE SQ PRN
[2023-01-15] MEDS ORDERED: ONDANSETRON 4 MG/2 ML VIAL IVP ONE (07:38)
[2023-01-15] MEDS ORDERED: HYDROmorphone 0.5 MG/0.5 ML SYRINGE IVP PRN (07:38)
[2023-01-15] MEDS ORDERED: fentaNYL (PF) 50 MCG/ML 2 ML AMP IV PRN (07:38)
[2023-01-15] MEDS ORDERED: LACTATED RINGERS 1,000 ML IV SCH (07:38)
[2023-01-15] MEDS ORDERED: ALPRAZolam 0.25 MG TAB ONE (07:41)
[2023-01-15] MEDS ORDERED: ALPRAZolam 0.25 MG TAB PO ONE (07:55)
[2023-01-15 08:41] VITALS: RESP 16
[2023-01-15] MEDS ORDERED: LIDOCAINE 1% INJ 10MG/ML (20 ML MDV) SQ ONE (08:48)
[2023-01-15] MEDS ORDERED: fentaNYL (PF) 50 MCG/ML 2 ML AMP ONE (09:39)
[2023-01-15] MEDS ORDERED: LIDOCAINE 2% INJ 20 MG/ML (2 ML VIAL) ONE (09:39)
[2023-01-15] MEDS ORDERED: PROPOFOL 10 MG/ML 20 ML VIAL IV ONE (09:39)
[2023-01-15] MEDS ORDERED: PHENYLEPHRINE-0.9% NACL SYG 1,000 MCG/10 ML SYRINGE ONE (09:39)
--- NOTE | 2023-01-15 10:40 | P.OP ---
Date of Procedure: 01/15/23 Preoperative Diagnosis: Previous scar/question discordant right breast core biopsy Postoperative Diagnosis: Same Procedure(s) Performed: Right breast needle localization/Y VAC placement localization excision of radial scar/ discordant lesion Anesthesia: WOLF Surgeon: Aracely Love Estimated Blood Loss (ml): 5 IV fluids (ml): 200 Pathology: other (breast tissue) Condition: stable Disposition: same day Indications for Procedure: Biopsy right breast radial scar felt to be discordant recommendation for resection in the operating room Operative Findings: Fibrofatty breast tissue Description of Procedure: The patient is a 67-year-old white female status post biopsy of the lesion in the right breast. This revealed a radial scar but there was concern that this was discordant reviewed with radiology. Localization and resection was recommended. Localization preoperatively was performed with the wire localization as well as nightclub. The patient was then brought to the operative suite. Following induction of anesthesia the right breast was prepped and draped in a sterile fashion. His leg localized to the area of greatest activity was identified. A periareolar incision was made. Dissection was performed down to the area of increased activity on the 2. Wide excision was performed. The specimen was painted for orientation. Radiograph of the specimen revealed the wire/mag seen/and clip of concern. The wound was well irrigated. After assured that hemostasis was attained titanium clips were placed. A superior flap 4 x 2.5 cm was formed. The cavity was 4 by 3 cm. A total of 22 cm onco-plastic tissue transfer was performed. The superior flap was brought to the inferior area and secured using 3-0 Vicryl suture. Subcutaneous tissue was closed using 3-0 Vicryl suture. The skin was closed using 4-0 Monocryl. Steri-Strips were applied. The patient tolerated the procedure in stable condition. All instrument and sponge counts were correct at the end of the case.
--- NOTE | 2023-01-15 10:42 | P.DS ---
Providers Attending physician: Aracely Love Primary care physician: Sindy Estrada Plan - Discharge Summary Discharge Rx Participant: No New Discharge Prescriptions: New HYDROcodone/APAP 5-325MG [Carey 5] 1 - 2 each PO Q6HR PRN #10 tab PRN Reason: Pain No Action Atorvastatin Calcium [Lipitor] 20 mg PO SA Alendronate Sodium [Fosamax] 70 mg PO SA Albuterol Inhaler [Ventolin Hfa Inhaler] 1 - 2 puff INHALATION Q6HR PRN #1 inhaler PRN Reason: Cough PARoxetine [Paxil] 10 mg PO DAILY Loratadine [Claritin] 10 mg PO DAILY Discharge Medication List Alendronate Sodium [Fosamax] 70 mg PO SA 03/07/16 [History] Atorvastatin Calcium [Lipitor] 20 mg PO SA 03/07/16 [History] Albuterol Inhaler [Ventolin Hfa Inhaler] 1 - 2 puff INHALATION Q6HR PRN #1 inhaler 07/13/17 [Rx] Loratadine [Claritin] 10 mg PO DAILY 12/02/19 [History] PARoxetine [Paxil] 10 mg PO DAILY 12/02/19 [History] HYDROcodone/APAP 5-325MG [Carey 5] 1 - 2 each PO Q6HR PRN #10 tab 01/15/23 [Rx] Follow up Appointment(s)/Referral(s): Arcaely Love MD [STAFF PHYSICIAN] - 1 Week Activity/Diet/Wound Care/Special Instructions: do not drive for 24 hours from discharge donot dirve if taking narcotic pain medicine may shower after 48 hours Discharge Disposition: HOME SELF-CARE
[2023-01-15 10:56] VITALS: TEMP 97.8
[2023-01-15] MEDS ORDERED: HYDROcodone/APAP 5-325MG 1 EACH TAB PO ONE (12:02)
[2023-01-15] MEDS ORDERED: HYDROcodone/APAP 5-325MG 1 EACH TAB ONE (12:03)
[2023-01-15 12:18] VITALS: BP 123/77; PULSE 75
== END 2023-01-15 12:41 | disposition home or self-care (01) ==
LOC: OR 07:19
PROVIDERS: ATTEND Surgery
DX: N64.89 Other specified disorders of breast (principal); Z79.51 Long term (current) use of inhaled steroids; Z79.899 Other long term (current) drug therapy
CPT/HCPCS: 19281; J0690; J2405; J2001 ×2; J3010; J2704; J1644; J2371

== ENCOUNTER → 2023-01-24 | Outpatient (CLI) | payer MEDICARE ==
[2023-01-24 15:36] VITALS: BP 123/80; PULSE 77; RESP 16; TEMP 98.2
--- NOTE | 2023-01-24 15:38 | P.PN ---
Progress Note - Text Progress Note Date: 01/24/23 Jeimy is post-op resection of right breast lesion. Pathology radial scar, Focal ADH/FEA. Emanation: Incision: Clean and dry Lungs: Clear Heart: Regular rate and rhythm Impression: Pathology reveals atypical ductal hyperplasia/this increases patient's risk for breast cancer Plan: Appointment with medical oncology to his discuss chemoprophylaxis Right breast mammogram 6 months with physician exam at that time CC: Dr. Estrada
== END ==
LOC: WWCWWP 15:21
PROVIDERS: ATTEND Surgery
DX: N60.81 Other benign mammary dysplasias of right breast (principal); E22.2 Syndrome of inappropriate secretion of antidiuretic hormone; L90.5 Scar conditions and fibrosis of skin; Z91.048 Other nonmedicinal substance allergy status; Z88.1 Allergy status to other antibiotic agents; Z88.2 Allergy status to sulfonamides; Z88.8 Allergy status to other drugs, medicaments and biological substances; Z87.891 Personal history of nicotine dependence
CPT/HCPCS: 76098

== ENCOUNTER → 2023-06-12 | Outpatient (CLI) | payer MEDICARE ==
--- NOTE | 2023-06-12 14:47 | BD ---
EXAMINATION TYPE: Axial Bone Density DATE OF EXAM: 06/12/2023 CLINICAL HISTORY: 68 years old Female. ICD-10 CODE: M85.88 OTH DISRD OF BONE DENSITY Height: 58 in Weight: 178 lbs FRAX RISK QUESTIONS: Secondary Osteoporosis: 3. Menopause before 45: age 38 MEDICATIONS: Osteoporosis Medications: yes Which medication: Fosamax How Lon+ years EXAM MEASUREMENTS: Bone mineral densitometry was performed using the [employer] System. Bone mineral density as measured about the Lumbar spine is: ----- L1-L4(G/cm2): 0.962 T Score Values are as follows: ----- L1: -2.2 ----- L2: -2.6 ----- L3: -1.5 ----- L4: -1.2 ----- L1-L4: -1.8 Z Score Values are as follows: ----- L1: -1.0 ----- L2: -1.5 ----- L3: -0.4 ----- L4: -0.1 ----- L1-L4: -0.7 Bone mineral density has: Increased 14.1% since study of: 11/10/2014 Bone mineral density about the R hip (g/cm2): 0.962 Bone mineral density about the L hip (g/cm2): 0.993 T Score values are as follows: -----R Neck: -1.3 -----L Neck: -1.1 -----R Total: -0.4 -----L Total: -0.1 Z Score values are as follows: -----R Neck: 0.0 -----L Neck: 0.3 -----R Total: 0.7 -----L Total: 1.0 Bone mineral density has: Increased 2.5% since study of: 11/10/2014 FRAX%s: The graph provided illustrates a 8.6% chance for a major osteoporotic fx and a 1.0% chance fo r the hips probability for fx in 10 years time. IMPRESSION: Osteoporosis (T Score less than -2.5). There is increased fracture risk and therapy is usually indicated based on age. Re-Screen 1-2 years. NOTE: T-SCORE=SD OF THE YOUNG ADULT MEAN.
== END | disposition home or self-care (01) ==
LOC: RADBDWWP 12:40
PROVIDERS: ATTEND Internal Medicine
DX: M81.0 Age-related osteoporosis without current pathological fracture (principal); M85.89 Other specified disorders of bone density and structure, multiple sites; E78.5 Hyperlipidemia, unspecified; J44.89 Other specified chronic obstructive pulmonary disease
CPT/HCPCS: 77080

== ENCOUNTER → 2023-07-18 | Outpatient (CLI) | payer MEDICARE ==
--- NOTE | 2023-07-18 14:42 | MM ---
Reason for Exam: Hx of breast cancer, conservation therapy. Last screening mammogram was performed 6 month(s) ago. Patient History: Menarche at age 10. First Full-Term at age 17. Postmenopausal. 01/15/2023, Lumpectomy on the Right side. 01/15/2023, Benign MG pre op needle loc RT on the right side. 08/02/2022, High risk US biopsy breast VAD RT on the right side. Benign Excisional Biopsy on the left side. Niece had breast cancer, age 40. Risk Values: Jazmyn 5 year model risk: 1.9%. NCI Lifetime model risk: 5.5%. Prior Study Comparison: 12/15/2021 Right MG work up mamm w CAD RT, [facility]. 08/02/2022 Right MG diagnostic mammo RT wo CAD, [facility]. 01/10/2023 Bilateral MG 3D diag mammo w/cad ERROL, [facility]. Tissue Density: Right: There are scattered areas of fibroglandular density. Findings: Analyzed By CAD. Postsurgical changes right breast. A couple prominent lymph nodes are noted in the axilla. Ultrasound can be performed. Otherwise, no suspicious microcalcification or other discrete abnormality is seen. Overall Assessment: Incomplete: need additional imaging evaluation, BI-RAD 0 Management: Diagnostic Breast Ultrasound of the right breast. Electronically signed and approved by: Machelle Mar M.D. Radiologist
--- NOTE | 2023-07-18 15:06 | USB ---
Reason for Exam: Additional evaluation requested from abnormal screening. Patient History: Menarche at age 10. First Full-Term at age 17. Postmenopausal. 01/15/2023, Lumpectomy on the Right side. 01/15/2023, Benign MG pre op needle loc RT on the right side. 08/02/2022, High risk US biopsy breast VAD RT on the right side. Benign Excisional Biopsy on the left side. Niece had breast cancer, age 40. Risk Values: Jazmyn 5 year model risk: 1.9%. NCI Lifetime model risk: 5.5%. Technique: Method: Targeted. Prior Study Comparison: 12/15/2021 Right MG work up mamm w CAD RT, [facility]. 08/02/2022 Right MG diagnostic mammo RT wo CAD, [facility]. 01/10/2023 Bilateral MG 3D diag mammo w/cad ERROL, [facility]. Findings: The axilla of the right breast was scanned. Targeted ultrasound of the right axilla shows 2 adjacent prominent lymph nodes measuring 2.1 x 1.9 x 1.1 cm. Cortex borderline thickened up to 3.4 mm. The second node measures 1.4 x 1.4 x 1.2 cm with cortex thickened up to 3.7 mm. Suspect a reactive/post inflammatory etiology. Three-month follow-up to reassess. Overall Assessment: Probably benign, BI-RAD 3 Management: Diagnostic Breast Ultrasound of the right breast in 3 months. To assess for stability/involution of suspected reactive axillary nodes. A clinical breast exam by your physician is recommended on an annual basis and results should be correlated with mammographic findings. This exam should not preclude additional follow-up of suspicious palpable abnormalities. Results were given to the patient verbally at the time of exam. Electronically signed and approved by: Machelle Mar M.D. Radiologist
== END | disposition home or self-care (01) ==
LOC: RADMAMWWP 14:19
PROVIDERS: ATTEND Surgery
DX: R92.321 Mammographic fibroglandular density, right breast (principal); Z78.0 Asymptomatic menopausal state
CPT/HCPCS: 77061; 77065

== ENCOUNTER → 2023-07-25 | Outpatient (CLI) | payer MEDICARE ==
--- NOTE | 2023-07-25 15:29 | P.PN ---
Subjective Progress Note Date: 07/25/23 radial scar right breast Jeimy is a 67 year old female seen in consultation for Yolanda Mann regarding a core biopsy of the right breast showing a radial scar. She had a bilateral mammogram on 12-05-21 which led to a right breast ultrasound and right diagnostic mammogram. A 6 mm lesioin was noted and 3 month follow up was recommended. She had a repeat right breast ultrasound on 07-12-22 which showed the lesion had increased to 6 mm in dimension from 4 mm. A core biopsy was done showing a radial scar. The patient did not feel any lumps masses or nodules of concern in either breast. She tolerated the biopsy without difficulty. She did have a left breast biopsy many years ago for calcium deposits this was not cancer. She was not complaining of any recent trauma or infection in the breast. She was not complaining of any nipple discharge or skin changes. The patient on 01-15-23 underwent an open biopsy , pathology radial scar, focal ADH/FEA She was referred to medical oncology, she is on Anestrazole Dr. Rodger Bauer She is not concerned about any new lesions in either breast, she does not feel any new lumps masses or nodules of concern in either breast She had a right breast mammogram in 07-18-2023 this was BI-RADS 0 and an ultrasound was recommended this was done on the same date which showed 2 adjacent prominent lymph nodes and the cortex was thickened up to 3.7 mm suspecting a reactive postinflammatory etiology, 3-month follow-up was recommended to reassess Caffeine: 12 cup/day nicotine:stopped 7 years ago, used to smoke 1 1/2 PPD for 40 years chocolate: daily BCP: 30 years Family History: mother: colon cancer at 57 son: leukemia brother: pancreatic cancer nephew: melanoma bottom of foot niece: breast cancer Hormonal History: menarche: 8 M1 breat fed: no, age at first : 18 menopause: 38 hormones: none Surgical History; gallbladder hernia all teeth removed left breast biopsy Medical History: high cholesterol COPD/asthma arthritis Social History: nicotine: as above alcohol: none drugs: none - Constitutional Constitutional: Denies chills, Denies fever - EENT Eyes: denies blurred vision, denies pain Ears: deny: decreased hearing, tinnitus Ears, nose, mouth and throat: Denies headache, Denies sore throat - Breasts Breasts: bilateral: as per HPI - Cardiovascular Cardiovascular: Reports shortness of breath, Denies chest pain - Respiratory Respiratory: Denies cough - Gastrointestinal Gastrointestinal: Denies abdominal pain, Denies diarrhea, Denies nausea, Denies vomiting - Genitourinary (Female) Genitourinary: Denies dysuria, Denies hematuria - Menstruation Menstruation: Reports postmenopausal - Musculoskeletal Musculoskeletal: Reports myalgias - Integumentary Integumentary: Denies pruritus, Denies rash - Neurological Neurological: Denies numbness, Denies weakness - Psychiatric Psychiatric: Reports anxiety, Reports depression - Endocrine Endocrine: Denies fatigue, Denies weight change - Hematologic/Lymphatic Comment: none - Allergic/Immunologic Allergic/Immunologic: Reports as per HPI, Reports seasonal allergies Past Medical History Past Medical History: Asthma, COPD, Hyperlipidemia, Liver Disease, Osteoarthritis (OA), Rheumatoid Arthritis (RA) Additional Past Medical History / Comment(s): varicose veins, "fatty liver", osteoporosis History of Any Multi-Drug Resistant Organisms: None Reported Past Surgical History: Breast Surgery, Section, Cholecystectomy, Hernia Repair, Orthopedic Surgery Additional Past Surgical History / Comment(s): june carpal tunnel, left breast lumpectomy, left hand index middle trigger finger, right hand, ring and middle trigger finger Past Anesthesia/Blood Transfusion Reactions: Motion Sickness Past Psychological History: No Psychological Hx Reported Smoking Status: Former smoker Past Alcohol Use History: None Reported Additional Past Alcohol Use History / Comment(s): quit smoking 06/2015, smoked for 40 yrs Past Drug Use History: None Reported - Past Family History Mother Family Medical History: Cancer Medications and Allergies Home Medications Medication Instructions Recorded Confirmed Type Alendronate Sodium [Fosamax] 70 mg PO SA 03/07/16 10/11/22 History Atorvastatin Calcium [Lipitor] 20 mg PO SA 03/07/16 10/11/22 History Albuterol Inhaler [Ventolin Hfa 1 - 2 puff INHALATION Q6HR PRN #1 07/13/17 10/11/22 Rx Inhaler] inhaler Loratadine [Claritin] 10 mg PO DAILY 12/02/19 10/11/22 History PARoxetine [Paxil] 10 mg PO DAILY 12/02/19 10/11/22 History Allergies Allergy/AdvReac Type Severity Reaction Status Date / Time adhesive Allergy Rash/Hives Verified 10/11/22 08:51 bacitracin Allergy Rash/Hives Verified 10/11/22 08:51 [From Neosporin ([id number])] bacitracin zinc Allergy Rash/Hives Verified 10/11/22 08:51 [From Neosporin ([id number])] neomycin sulfate Allergy Rash/Hives Verified 10/11/22 08:51 [From Neosporin ([id number])] polymyxin B Allergy Rash/Hives Verified 10/11/22 08:51 [From Neosporin ([id number])] sulfamethoxazole Allergy Rash/Hives Verified 10/11/22 08:51 [From Bactrim] trimethoprim [From Bactrim] Allergy Rash/Hives Verified 10/11/22 08:51 cortisone AdvReac rash @ Verified 10/11/22 08:51 injection site Objective - Constitutional General appearance: Present: cooperative - EENT Eyes: Present: EOMI ENT: Present: hearing grossly normal - Neck Neck: Present: normal ROM - Respiratory Respiratory: bilateral: CTA - Cardiovascular Heart sounds: normal: S1, S2 - Gastrointestinal General gastrointestinal: Present: soft - Integumentary Integumentary: Present: normal turgor - Musculoskeletal Musculoskeletal: Present: gait normal - Psychiatric Psychiatric: Present: A&O x's 3, appropriate affect, intact judgment & insight - Additional findings Additional findings: Breast Exam: BRA: does not wear one inspection: Probable cup size approximately C, bilateral grade 3 ptosis Palpation: Right breast: Multi-positional exam no dominant masses or nodules of concern Right axilla: No adenopathy of concern Left breast: Multi-positional exam well-healed scar from prior biopsy, no dominant masses or nodules of concern Left axilla: No adenopathy of concern Assessment and Plan Assessment: Impression: Fibrocystic breast changes Patient's status post right breast needle localization excision of atypical ductal hyperplasia Patient presently on anastrozole Recent right breast mammogram and ultrasound revealed some lymph nodes with borderline thickening of the cortex the impression was probable postinflammatory repeat right breast ultrasound and axillary ultrasound in 3 months with examination at that time Plan: Right breast ultrasound and axillary ultrasound in 3 months with examination at that time Bilateral mammogram in September 26 with examination CC: Dr. Esquivel
[2023-07-25 15:44] VITALS: BP 130/79; PULSE 93; RESP 17; TEMP 97.8
== END | disposition home or self-care (01) ==
LOC: WWCWWP 14:17
PROVIDERS: ATTEND Surgery
DX: N60.11 Diffuse cystic mastopathy of right breast (principal); Z79.811 Long term (current) use of aromatase inhibitors; Z91.048 Other nonmedicinal substance allergy status; Z88.2 Allergy status to sulfonamides; Z91.018 Allergy to other foods; Z88.1 Allergy status to other antibiotic agents; Z88.4 Allergy status to anesthetic agent; Z87.891 Personal history of nicotine dependence

== ENCOUNTER → 2023-10-23 | Outpatient (CLI) | payer MEDICARE ==
--- NOTE | 2023-10-23 09:37 | USB ---
Reason for Exam: Follow-up at short interval from prior study. Patient History: Menarche at age 10. First Full-Term at age 17. Postmenopausal. 01/15/2023, Lumpectomy on the Right side. 01/15/2023, Benign MG pre op needle loc RT on the right side. 08/02/2022, High risk US biopsy breast VAD RT on the right side. Benign Excisional Biopsy on the left side. Niece had breast cancer, age 40. Risk Values: Jazmyn 5 year model risk: 1.9%. NCI Lifetime model risk: 5.5%. Technique: Method: Targeted. Prior Study Comparison: 08/02/2022 Right MG diagnostic mammo RT wo CAD, [facility]. 01/10/2023 Bilateral MG 3D diag mammo w/cad ERROL, [facility]. 07/18/2023 Right MG 3D diag mammo w/cad RT, [facility]. Findings: The upper outer quadrant of the right breast, the axilla of the right breast and the retroareolar of the right breast were scanned. Masslike area which is of increased echogenicity the peripheral decreased echogenicity is noted at the right 10:00 position 2 cm from the nipple which may reflect prior biopsy change however I cannot state this with certainty and as such tissue diagnosis is advised. Lymph nodes within the right axilla remain unchanged from prior study with maximal cortical thickness of 4 mm. Overall Assessment: Suspicious, BI-RAD 4 Management: Ultrasound Core Biopsy of the right breast. A clinical breast exam by your physician is recommended on an annual basis and results should be correlated with mammographic findings. This exam should not preclude additional follow-up of suspicious palpable abnormalities. Results were given to the patient verbally at the time of exam. Electronically signed and approved by: Tony Heath M.D. Radiologis
== END | disposition home or self-care (01) ==
LOC: RADUSWWP 09:00
PROVIDERS: ATTEND Surgery
DX: R92.8 Other abnormal and inconclusive findings on diagnostic imaging of breast (principal); Z78.0 Asymptomatic menopausal state

== ENCOUNTER → 2023-11-08 | Day surgery (SDC) | payer MEDICARE ==
--- NOTE | 2023-11-14 09:52 | MM ---
Reason for Exam: Post Procedure Mammogram. Last screening mammogram was performed 10 month(s) ago. Patient History: Menarche at age 10. First Full-Term at age 17. Postmenopausal. 01/15/2023, Lumpectomy on the Right side. 01/15/2023, Benign MG pre op needle loc RT on the right side. 08/02/2022, High risk US biopsy breast VAD RT on the right side. Benign Excisional Biopsy on the left side. Niece had breast cancer, age 40. Risk Values: Jazmyn 5 year model risk: 1.9%. NCI Lifetime model risk: 5.5%. Prior Study Comparison: 08/02/2022 Right MG diagnostic mammo RT wo CAD, [facility]. 01/10/2023 Bilateral MG 3D diag mammo w/cad ERROL, [facility]. 07/18/2023 Right MG 3D diag mammo w/cad RT, [facility]. Tissue Density: Right: There are scattered areas of fibroglandular density. Pathology Description: Location: 10 o'clock. Needle Type: Mammotome Cores: 7 Gauge: 13 The procedure of ultrasound guided core biopsy was explained to the patient. Benefits, alternatives, and risks were discussed. An informed consent was then obtained. The 2.4 cm masslike area in the 10:00 position right breast is identified and targeted for biopsy. The patient was placed in supine positioning for imaging and for the procedure. The overlying skin was prepped and draped in usual sterile fashion. Lidocaine was utilized as anesthetic into the skin and subcutaneous tissue up to area of concern in the 10:00 right breast. Under ultrasound guidance, a 13-gauge vacuum-assisted mammotome Elite biopsy gun was used to obtain 7 core samples. Following this, a coil clip was left in lesion. The lesion significantly decompressed and collapsed with the sampling. Given this appearance, we suspect postsurgical change with complex seroma and fat necrosis. The patient tolerated the procedure well without any immediate complication. The patient was kept in the radiology department for short stay after the procedure and then discharged home in stable condition. Postprocedure mammogram: The patient was transferred to mammography for physician ordered post procedure mammogram for clip placement verification. The coil clip is located just posterior to the masslike lumpectomy site. IMPRESSION: Successful, uncomplicated ultrasound guided core biopsy of masslike area 10:00 right breast corresponding to the patient's lumpectomy site. Given that the area decompressed and partially collapsed with the sampling, we suspect complex seroma and fat necrosis. Full pathology results to follow. Pathology Results: Result: Benign, Fat necrosis. RIGHT BREAST, CORE BIOPSY: Fibrous scar and fat necrosis with focal calcification and prior procedure-related changes. Negative for malignancy. Overall Assessment: Benign Assessment: MG diagnostic mammo RT wo CAD - Right: Benign, BI-RAD 2. Management: Diagnostic Mammogram of the right breast in 6 months. Electronically signed and approved by: Machelle Mar M.D. Radiologist
== END ==
LOC: RADUSWWP 10:14
PROVIDERS: ATTEND Surgery
DX: N64.1 Fat necrosis of breast (principal); Z78.0 Asymptomatic menopausal state
CPT/HCPCS: 88305; 77065; 19083; A4648

== ENCOUNTER 2023-11-15 20:53 | Observation (INO) | payer MEDICARE ==
[2023-11-15] MEDS: SODIUM CHLORIDE 0.9% 1,000 ML IV STA (22:09)
[2023-11-15] MEDS: ACETAMINOPHEN TAB 500 MG TAB PO STA (22:11)
[2023-11-15 22:25] LABS: Basophils % (A) 0 %; Eosinophils # (A) 0.1 k/uL (0-0.7); Eosinophils % (A) 1 %; HCT 36.3 % (34.0-46.0); HGB 11.8 gm/dL (11.4-16.0); Lymphocytes # (A) 0.8 k/uL (1.0-4.8); Lymphocytes % (A) 10 %; MCH 27.5 pg (25.0-35.0); MCHC 32.4 g/dL (31.0-37.0); MCV 84.7 fL (80.0-100.0); Mean Platelet Volume 8.7; Monocytes # (A) 0.6 k/uL (0-1.0); Monocytes % (A) 8 %; Neutrophils % (A) 78 %; Platelet Count 175 k/uL (150-450); RBC 4.28 m/uL (3.80-5.40); RDW 14.7 % (11.5-15.5); WBC 7.8 k/uL (3.8-10.6)
[2023-11-15 22:34] LABS: Appearance,Urine Clear (Clear); Bilirubin,Urine Negative (Negative); Blood,Urine Small (Negative); Color,Urine Light Yellow; Glucose,Urine (UA) Negative (Negative); Ketones,Urine Trace (Negative); Leukocyte Esterase,Urine Small (Negative); Mucus,Urine Rare /hpf; Nitrite,Urine Negative (Negative); Protein,Urine Trace (Negative); RBC,Urine 4 /hpf (0-5); Specific Gravity,Urine 1.013 (1.001-1.035); Squamous Epithelial Cell,Urine 2 /hpf (0-4); WBC,Urine 5 /hpf (0-5)
[2023-11-15 22:38] LABS: ALT 37 U/L (4-34); African American GFR (CKD) 67 (>60 ml/min/1.73 sqM); Albumin 3.5 g/dL (3.5-5.0); Anion Gap 8 mmol/L; Blood Urea Nitrogen 15 mg/dL (7-17); Calcium 8.7 mg/dL (8.4-10.2); Carbon Dioxide 22 mmol/L (22-30); Chloride 102 mmol/L (98-107); Glucose 122 mg/dL (74-99); Lipase 38 U/L (23-300); Non-African American GFR(CKD) 58 (>60 ml/min/1.73 sqM); Sodium 132 mmol/L (137-145); Total Bilirubin 0.9 mg/dL (0.2-1.3); Total Protein 6.4 g/dL (6.3-8.2)
[2023-11-15 22:41] LABS: AST 41 U/L (14-36); Alkaline Phosphatase 91 U/L (38-126)
--- NOTE | 2023-11-16 01:39 | CT ---
EXAM: CT Head Without Intravenous Contrast CLINICAL HISTORY: ITS.REASON CT Reason: ams TECHNIQUE: Axial computed tomography images of the head/brain without intravenous contrast. CTDI is 49.1 mGy and DLP is 1168.4 mGy-cm. This CT exam was performed using one or more of the following dose reduction techniques: automated exposure control, adjustment of the mA and/or kV according to patient size, and/or use of iterative reconstruction technique. COMPARISON: No relevant prior studies available. FINDINGS: Brain: Unremarkable. No hemorrhage. Mild nonspecific white matter changes. No edema. Ventricles: Unremarkable. No ventriculomegaly. Bones/joints: Incomplete fusion of the posterior ring of C1. No acute fracture. Soft tissues: Unremarkable. Sinuses: Unremarkable as visualized. No acute sinusitis. Mastoid air cells: Unremarkable as visualized. No mastoid effusion. IMPRESSION: No evidence of acute intracranial pathology.
--- NOTE | 2023-11-16 02:33 | ED ---
Female Urogenital HPI - General Chief complaint: Urogenital Stated complaint: UTI Time Seen by Provider: 11/15/23 21:05 Source: patient Mode of arrival: ambulatory Limitations: no limitations - History of Present Illness Initial comments: 68-year-old female presents from home accompanied by family. Patient was having some burning with urination and confusion. She was diagnosed with a urinary tract infection and started antibiotics today. This was done through her primary care office. Family thinks that the patient symptoms are escalating too quickly to be on the oral antibiotics and therefore brought her into the hospital for further evaluation. She denies any other source. Admits burning with urination and increased frequency of urination. Denies chills or cough. Patient found to have a fever upon arrival to the emergency department. No nausea or vomiting. No chest pain. Does have some suprapubic abdominal pain. Patient denies any falls. Patient is on Augmentin for her urinary tract infection. - Related Data Home Medications Medication Instructions Recorded Confirmed Alendronate Sodium [Fosamax] 70 mg PO SA 03/07/16 07/25/23 Atorvastatin Calcium [Lipitor] 20 mg PO SA 03/07/16 07/25/23 Loratadine [Claritin] 10 mg PO DAILY 12/02/19 10/24/23 PARoxetine [Paxil] 10 mg PO DAILY 12/02/19 10/24/23 Anastrozole [Arimidex] 1 mg PO DAILY 10/24/23 10/24/23 Previous Rx's Medication Instructions Recorded Albuterol Inhaler [Ventolin Hfa 1 - 2 puff INHALATION Q6HR PRN #1 07/13/17 Inhaler] inhaler Allergies Allergy/AdvReac Type Severity Reaction Status Date / Time adhesive Allergy Rash/Hives Verified 11/15/23 21:04 bacitracin Allergy Rash/Hives Verified 11/15/23 21:04 [From Neosporin ([id number])] bacitracin zinc Allergy Rash/Hives Verified 11/15/23 21:04 [From Neosporin ([id number])] neomycin sulfate Allergy Rash/Hives Verified 11/15/23 21:04 [From Neosporin ([id number])] polymyxin B Allergy Rash/Hives Verified 11/15/23 21:04 [From Neosporin ([id number])] sulfamethoxazole Allergy Rash/Hives Verified 11/15/23 21:04 [From Bactrim] trimethoprim [From Bactrim] Allergy Rash/Hives Verified 11/15/23 21:04 cortisone AdvReac rash @ Verified 11/15/23 21:04 injection site Review of Systems ROS Statement: Those systems with pertinent positive or pertinent negative responses have been documented in the HPI. ROS Other: All systems not noted in ROS Statement are negative. Past Medical History Past Medical History: Asthma, COPD, Hyperlipidemia, Liver Disease, Osteoarthritis (OA), Rheumatoid Arthritis (RA) Additional Past Medical History / Comment(s): varicose veins, "fatty liver", osteoporosis History of Any Multi-Drug Resistant Organisms: None Reported Past Surgical History: Breast Surgery, Section, Cholecystectomy, Hernia Repair, Orthopedic Surgery Additional Past Surgical History / Comment(s): june carpal tunnel, left breast lumpectomy, left hand index middle trigger finger, right hand, ring and middle trigger finger, Past Anesthesia/Blood Transfusion Reactions: Motion Sickness Past Psychological History: No Psychological Hx Reported Smoking Status: Former smoker Past Alcohol Use History: None Reported Past Drug Use History: None Reported - Past Family History Mother Family Medical History: Cancer General Exam Limitations: no limitations General appearance: alert, in no apparent distress Head exam: Present: atraumatic, normocephalic, normal inspection Eye exam: Present: normal appearance, PERRL, EOMI. Absent: scleral icterus, conjunctival injection, periorbital swelling ENT exam: Present: normal exam, mucous membranes moist Neck exam: Present: normal inspection. Absent: tenderness, meningismus, lymph adenopathy Respiratory exam: Present: normal lung sounds bilaterally. Absent: respiratory distress, wheezes, rales, rhonchi, stridor Cardiovascular Exam: Present: regular rate, normal rhythm, normal heart sounds. Absent: systolic murmur, diastolic murmur, rubs, gallop, clicks GI/Abdominal exam: Present: soft, tenderness (Suprapubic), normal bowel sounds. Absent: distended, guarding, rebound, rigid Extremities exam: Present: normal inspection, full ROM, normal capillary refill. Absent: tenderness, pedal edema, joint swelling, calf tenderness Back exam: Present: normal inspection Neurological exam: Present: alert, oriented X3, CN II-XII intact Psychiatric exam: Present: normal affect, normal mood Skin exam: Present: warm, dry, intact, normal color. Absent: rash Course Vital Signs 11/15/23 11/15/23 21:02 23:30 Temperature 100.9 F H 98.9 F Pulse Rate 84 76 Respiratory 18 16 Rate Blood Pressure 130/73 112/64 O2 Sat by Pulse 94 L 95 Oximetry Medical Decision Making - Medical Decision Making Was pt. sent in by a medical professional or institution (, CHEPE, ASSISTANT OFFICE MANAGER, urgent care, hospital, or alf...) When possible be specific @ -No Did you speak to anyone other than the patient for history (EMS, parent, family, police, friend...)? What history was obtained from this source @ -I spoke with patient's daughters for history Did you review nursing and triage notes (agree or disagree)? Why? @ -I reviewed and agree with nursing and triage notes Were old charts reviewed (outside hosp., previous admission, EMS record, old EKG, old radiological studies, urgent care reports/EKG's, alf records)? Report findings @ -No old charts were reviewed Differential Diagnosis (chest pain, altered mental status, abdominal pain women, abdominal pain men, vaginal bleeding, weakness, fever, dyspnea, syncope, headache, dizziness, GI bleed, back pain, seizure, CVA, palpatations, mental health, musculoskeletal)? @ -Differential Altered Mental Status: Hypoglycemia, DKA, hypercapnia, ETOH, overdose, CO poisoning, trauma, myxedema coma, HTN encephalopathy, infection, encephalitis, psychosis, intercranial hemorrhage, hepatic encephalopathy, meningitis, CVA, this is not meant to be an all-inclusive list EKG interpreted by me (3pts min.). @ -Not done X-rays interpreted by me (1pt min.). @ -Yes and demonstrates no acute process CT interpreted by me (1pt min.). @ -Yes and demonstrates no acute intracranial process U/S interpreted by me (1pt. min.). @ -None done What testing was considered but not performed or refused? (CT, X-rays, U/S, labs)? Why? @ -None What meds were considered but not given or refused? Why? @ -None Did you discuss the management of the patient with other professionals (professionals i.e. , CHEPE, ASSISTANT OFFICE MANAGER, lab, RT, psych nurse, sr. social media & mobile manager, knot cutter, teacher, aoc director combat plans officer, catalytic case operator)? Give summary @ -Spoke with Dr. Lundy for admission Was smoking cessation discussed for >3mins.? @ -No Was critical care preformed (if so, how long)? @ -No Were there social determinants of health that impacted care today? How? (Ho melessness, low income, unemployed, alcoholism, drug addiction, transportation, low edu. Level, literacy, decrease access to med. care, care home, rehab)? @ -No Was there de-escalation of care discussed even if they declined (Discuss DNR or withdrawal of care, Hospice)? DNR status @ -No What co-morbidities impacted this encounter? (DM, HTN, Smoking, COPD, CAD, Cancer, CVA, ARF, Chemo, Hep., AIDS, mental health diagnosis, sleep apnea, morbid obesity)? @ -COPD Was patient admitted / discharged? Hospital course, mention meds given and route, prescriptions, significant lab abnormalities, going to OR and other pertinent info. @ -Upon arrival patient seen and evaluated in room 11. Thorough history and physical exam was performed. IV access was established. Laboratory studies are conducted. Patient does provide a urine sample. She does have a fever and therefore she was given a gram of Tylenol. Urinalysis does have some white blood cells however is not overwhelmingly convincing for urinary tract infection. Sample may be skewed by previous initiation of antibiotics. I did obtain a chest x-ray and viral swab to evaluate for further etiology of the patient's fever. As family is reporting to confusion I did recommend admission. I spoke with Dr. Sam for admission. Patient taken to the floor in stable condition Undiagnosed new problem with uncertain prognosis? @ -Yes Drug Therapy requiring intensive monitoring for toxicity (Heparin, Nitro, Insulin, Cardizem)? @ -No Were any procedures done? @ -No Diagnosis/symptom? @ -Acute encephalopathy, acute pyrexia, recent UTI diagnosis, dysuria Acute, or Chronic, or Acute on Chronic? @ -Acute Uncomplicated (without systemic symptoms) or Complicated (systemic symptoms)? @ -Complicated Side effects of treatment? @ -No Exacerbation, Progression, or Severe Exacerbation? @ -No Poses a threat to life or bodily function? How? (Chest pain, [place], [place], pneumonia, PE, COPD, DKA, ARF, appy, cholecystitis, CVA, Diverticulitis, Homicidal, Suicidal, threat to staff... and all critical care pts) @ -No - Lab Data Result diagrams: 11/15/23 22:13 11/15/23 22:13 Lab Results 11/15/23 11/15/23 11/15/23 Range/Units 22:13 22:13 22:13 WBC 7.8 (3.8-10.6) k/uL RBC 4.28 (3.80-5.40) m/uL Hgb 11.8 (11.4-16.0) gm/dL Hct 36.3 (34.0-46.0) % MCV 84.7 (80.0-100.0) fL MCH 27.5 (25.0-35.0) pg MCHC 32.4 (31.0-37.0) g/dL RDW 14.7 (11.5-15.5) % Plt Count 175 (150-450) k/uL MPV 8.7 Neutrophils % 78 % Lymphocytes % 10 % Monocytes % 8 % Eosinophils % 1 % Basophils % 0 % Neutrophils # 6.0 (1.3-7.7) k/uL Lymphocytes # 0.8 L (1.0-4.8) k/uL Monocytes # 0.6 (0-1.0) k/uL Eosinophils # 0.1 (0-0.7) k/uL Basophils # 0.0 (0-0.2) k/uL Sodium 132 L (137-145) mmol/L Potassium 4.0 (3.5-5.1) mmol/L Chloride 102 (98-107) mmol/L Carbon Dioxide 22 (22-30) mmol/L Anion Gap 8 mmol/L BUN 15 (7-17) mg/dL Creatinine 0.99 (0.52-1.04) mg/dL Est GFR (CKD-EPI)AfAm 67 (>60 ml/min/1.73 sqM) Est GFR (CKD-EPI)NonAf 58 (>60 ml/min/1.73 sqM) Glucose 122 H (74-99) mg/dL Plasma Lactic Acid Gio 1.0 (0.7-2.0) mmol/L Calcium 8.7 (8.4-10.2) mg/dL Total Bilirubin 0.9 (0.2-1.3) mg/dL AST 41 H (14-36) U/L ALT 37 H (4-34) U/L Alkaline Phosphatase 91 (38-126) U/L Total Protein 6.4 (6.3-8.2) g/dL Albumin 3.5 (3.5-5.0) g/dL Lipase 38 (23-300) U/L Urine Color Urine Appearance (Clear) Urine pH (5.0-8.0) Ur Specific Tillar (1.001-1.035) Urine Protein (Negative) Urine Glucose (UA) (Negative) Urine Ketones (Negative) Urine Blood (Negative) Urine Nitrite (Negative) Urine Bilirubin (Negative) Urine Urobilinogen (<2.0) mg/dL Ur Leukocyte Esterase (Negative) Urine RBC (0-5) /hpf Urine WBC (0-5) /hpf Ur Squamous Epith Cells (0-4) /hpf Urine Mucus (None) /hpf 11/15/23 Range/Units 22:13 WBC (3.8-10.6) k/uL RBC (3.80-5.40) m/uL Hgb (11.4-16.0) gm/dL Hct (34.0-46.0) % MCV (80.0-100.0) fL MCH (25.0-35.0) pg MCHC (31.0-37.0) g/dL RDW (11.5-15.5) % Plt Count (150-450) k/uL MPV Neutrophils % % Lymphocytes % % Monocytes % % Eosinophils % % Basophils % % Neutrophils # (1.3-7.7) k/uL Lymphocytes # (1.0-4.8) k/uL Monocytes # (0-1.0) k/uL Eosinophils # (0-0.7) k/uL Basophils # (0-0.2) k/uL Sodium (137-145) mmol/L Potassium (3.5-5.1) mmol/L Chloride (98-107) mmol/L Carbon Dioxide (22-30) mmol/L Anion Gap mmol/L BUN (7-17) mg/dL Creatinine (0.52-1.04) mg/dL Est GFR (CKD-EPI)AfAm (>60 ml/min/1.73 sqM) Est GFR (CKD-EPI)NonAf (>60 ml/min/1.73 sqM) Glucose (74-99) mg/dL Plasma Lactic Acid Gio (0.7-2.0) mmol/L Calcium (8.4-10.2) mg/dL Total Bilirubin (0.2-1.3) mg/dL AST (14-36) U/L ALT (4-34) U/L Alkaline Phosphatase (38-126) U/L Total Protein (6.3-8.2) g/dL Albumin (3.5-5.0) g/dL Lipase (23-300) U/L Urine Color Light Yellow Urine Appearance Clear (Clear) Urine pH 7.0 (5.0-8.0) Ur Specific Tillar 1.013 (1.001-1.035) Urine Protein Trace H (Negative) Urine Glucose (UA) Negative (Negative) Urine Ketones Trace H (Negative) Urine Blood Small H (Negative) Urine Nitrite Negative (Negative) Urine Bilirubin Negative (Negative) Urine Urobilinogen 2.0 (<2.0) mg/dL Ur Leukocyte Esterase Small H (Negative) Urine RBC 4 (0-5) /hpf Urine WBC 5 (0-5) /hpf Ur Squamous Epith Cells 2 (0-4) /hpf Urine Mucus Rare H (None) /hpf Disposition Clinical Impression: Encephalopathy acute, UTI (urinary tract infection), Pyrexia Disposition: ADMITTED IP TO THIS [facility] Condition: Stable Is patient prescribed a controlled substance at d/c from ED?: No Time of Disposition: 02:33 Decision to Admit Reason: Admit from EC Decision Date: 11/16/23 Decision Time: 02:33
[2023-11-16] MEDS ORDERED: NALOXONE 0.4 MG/ML 1 ML VIAL IV PRN (02:34)
[2023-11-16] MEDS ORDERED: IBUPROFEN 400 MG TAB PO PRN (02:34)
[2023-11-16] MEDS: cefTRIAXone IN SWFI 1,000 MG/10 ML SYRINGE IVP STA (03:19)
[2023-11-16] MEDS: SODIUM CHLORIDE 0.9% 1,000 ML IV SCH (03:19)
--- NOTE | 2023-11-16 07:50 | XR ---
EXAMINATION TYPE: XR chest 2V DATE OF EXAM: 11/16/2023 COMPARISON: 07/13/2017 INDICATION: Cough, pain increasing shortness of breath TECHNIQUE: Frontal and lateral views of the chest are obtained. FINDINGS: The heart size is normal. The pulmonary vasculature is normal. The lungs are clear. IMPRESSION: 1. No acute pulmonary process.
[2023-11-16 13:01] VITALS: BMI 35.7
[2023-11-16] MEDS: ACETAMINOPHEN TAB 325 MG TAB PO PRN (14:13)
--- NOTE | 2023-11-16 14:32 | P.HPIM ---
History of Present Illness H&P Date: 11/16/23 History of present illness; patient is 68-year-old lady with past medical history significant for hyperlipidemia presented to the ER for confusion and burning urination. Patient was brought in by family, patient initially presented to her PCP office where they prescribed her antibiotics for her UTI. Over the course of day, patient's symptoms worsened and she was more confused. Patient was having increased burning with urination and increased frequency of urination. Patient also having fevers at home, no chills. No chest pain or shortness of breath. Patient denies any nausea, vomiting abdominal pain. Initial lab work done in the ER showed WBC 7.8, hemoglobin 11.8, platelet count 175, sodium 132, potassium 4, BUN 15, creatinine 0.99, glucose 122, bilirubin 0.9, AST 41, ALT 37, UA done showed nitrite negative, leukocyte Estrace small amount Influenza A not detected Influenza B not detected RSV not detected COVID-19 not detected Chest x-ray done in the ER showed no acute process CT head done showed no evidence for acute intracranial pathology Patient admitted to internal medicine service REVIEW OF SYSTEMS: CONSTITUTIONAL: As mentioned HEENT: No recent visual problems or hearing problems. Denied any sore throat. CARDIOVASCULAR: No chest pain, orthopnea, PND, no palpitations, no syncope. PULMONARY: No shortness of breath, no cough, no hemoptysis. GASTROINTESTINAL: No diarrhea, no nausea, no vomiting, no abdominal pain. NEUROLOGICAL: No headaches, no weakness, no numbness. HEMATOLOGICAL: Denies any bleeding or petechiae. GENITOURINARY: As mentioned above MUSCULOSKELETAL/RHEUMATOLOGICAL: Denies any joint pain, swelling, or any muscle pain. ENDOCRINE: Denies any polyuria or polydipsia. The rest of the 14-point review of systems is negative. PHYSICAL EXAMINATION: GENERAL: The patient is alert and oriented x3, not in any acute distress. Well developed, well nourished. HEENT: Pupils are round and equally reacting to light. EOMI. No scleral icterus. No conjunctival pallor. Normocephalic, atraumatic. No pharyngeal erythema. No thyromegaly. CARDIOVASCULAR: S1 and S2 present. No murmurs, rubs, or gallops. PULMONARY: Chest is clear to auscultation, no wheezing or crackles. ABDOMEN: Soft, nontender, nondistended, normoactive bowel sounds. No palpable o rganomegaly. MUSCULOSKELETAL: No joint swelling or deformity. EXTREMITIES: No cyanosis, clubbing, or pedal edema. NEUROLOGICAL: Gross neurological examination did not reveal any focal deficits. SKIN: No rashes. Assessment and plan UTI Encephalopathy Hyperlipidemia Monitor vital signs Monitor CBC Monitor CMP Ordered blood cultures Order urine cultures Continue IV fluids Start IV Rocephin Resume home meds Consult ID Labs and medication were reviewed.. Continue same treatment. Continue with symptomatic treatment. Resume home medication. Monitor labs and vitals. DVT and GI prophylaxis. Further recommendations as per clinical course of the patient Dictation was produced using [employer] dictation software. please excuse any grammatical, word or spelling errors. Past Medical History Past Medical History: Asthma, COPD, Hyperlipidemia, Liver Disease, Osteoarthritis (OA), Rheumatoid Arthritis (RA) Additional Past Medical History / Comment(s): varicose veins, "fatty liver", osteoporosis History of Any Multi-Drug Resistant Organisms: None Reported Past Surgical History: Breast Surgery, Section, Cholecystectomy, Hernia Repair, Orthopedic Surgery Additional Past Surgical History / Comment(s): june carpal tunnel, left breast lumpectomy, left hand index middle trigger finger, right hand, ring and middle trigger finger, Past Anesthesia/Blood Transfusion Reactions: Motion Sickness Past Psychological History: No Psychological Hx Reported Smoking Status: Former smoker Past Alcohol Use History: None Reported Past Drug Use History: None Reported - Past Family History Mother Family Medical History: Cancer Medications and Allergies Home Medications Medication Instructions Recorded Confirmed Type Alendronate Sodium [Fosamax] 70 mg PO Q7D 03/07/16 11/16/23 History Atorvastatin Calcium [Lipitor] 20 mg PO Q7D 03/07/16 11/16/23 History Anastrozole [Arimidex] 1 mg PO DAILY 10/24/23 11/16/23 History Amoxic-Pot Clav 875-125Mg 1 tab PO BID 11/16/23 11/16/23 History [Augmentin 875-125] Cyclobenzaprine [Flexeril] 10 mg PO HS 11/16/23 11/16/23 History PARoxetine HCL [Paxil] 40 mg PO DAILY 11/16/23 11/16/23 History Allergies Allergy/AdvReac Type Severity Reaction Status Date / Time adhesive Allergy Rash/Hives Verified 11/16/23 09:22 bacitracin Allergy Rash/Hives Verified 11/16/23 09:22 [From Neosporin ([id number])] bacitracin zinc Allergy Rash/Hives Verified 11/16/23 09:22 [From Neosporin ([id number]-eao-aquqt)] neomycin sulfate Allergy Rash/Hives Verified 11/16/23 09:22 [From Neosporin (heo-tar-facmx)] polymyxin B Allergy Rash/Hives Verified 11/16/23 09:22 [From Neosporin ([id number]-yvn-[id number])] sulfamethoxazole Allergy Rash/Hives Verified 11/16/23 09:22 [From Bactrim] trimethoprim [From Bactrim] Allergy Rash/Hives Verified 11/16/23 09:22 cortisone AdvReac rash @ Verified 11/16/23 09:22 injection site Physical Exam Vitals: Vital Signs Temp Pulse Pulse Resp BP BP BP 11/16/23 07:21 98.7 F 87 18 146/84 11/16/23 05:17 98.3 F 69 137/72 11/16/23 04:02 98.7 F 71 18 121/77 11/15/23 23:30 98.9 F 76 16 112/64 11/15/23 21:02 100.9 F H 84 18 130/73 Pulse Ox 11/16/23 07:21 93 L 11/16/23 05:17 94 L 11/16/23 04:02 96 11/15/23 23:30 95 11/15/23 21:02 94 L Intake and Output 11/15/23 11/16/23 11/16/23 22:59 06:59 14:59 Other: Voiding Method Toilet Weight 80.286 kg 80.286 kg Results CBC & Chem 7: 11/15/23 22:13 11/15/23 22:13 Labs: Abnormal Lab Results - Last 24 Hours (Table) 11/15/23 11/15/23 11/15/23 Range/Units 22:13 22:13 22:13 Lymphocytes # 0.8 L (1.0-4.8) k/uL Sodium 132 L (137-145) mmol/L Glucose 122 H (74-99) mg/dL AST 41 H (14-36) U/L ALT 37 H (4-34) U/L Urine Protein Trace H (Negative) Urine Ketones Trace H (Negative) Urine Blood Small H (Negative) Ur Leukocyte Esterase Small H (Negative) Urine Mucus Rare H (None) /hpf Thrombosis Risk Factor Assmnt - Choose All That Apply Any of the Below Risk Factors Present?: No Other Risk Factors: Yes Each Risk Factor Represents 2 Points: Age 61-74 years Thrombosis Risk Factor Assessment Total Risk Factor Score: 2 Thrombosis Risk Factor Assessment Level: Low Risk
[2023-11-16] MEDS: CYCLOBENZAPRINE 10 MG TAB PO SCH (20:24)
[2023-11-17] MEDS: PARoxetine 20 MG TAB PO SCH (07:46)
[2023-11-17 09:45] LABS: Basophils # (A) 0.02 X 10*3/uL (0.00-0.10); Basophils % (A) 0.4 %; Eosinophils # (A) 0 X 10*3/uL (0.04-0.35); Eosinophils % (A) 0 %; HCT 32.9 % (37.2-46.3); HGB 10.3 g/dL (12.0-15.0); Lymphocytes # (A) 1.23 X 10*3/uL (0.90-5.00); Lymphocytes % (A) 25.6 %; MCH 26.7 pg (27.0-32.0); MCHC 31.3 g/dL (32.0-37.0); MCV 85.2 FL (80.0-97.0); Monocytes # (A) 0.76 X 10*3/uL (0.20-1.00); Monocytes % (A) 15.8 %; NRBC Per 100 WBC 0 X 10*3/uL (0.00-0.01); Neutrophils # (A) 2.79 X 10*3/uL (1.80-7.70); Platelet Count 181 X 10*3/uL (140-440); RBC 3.86 X 10*6/uL (4.10-5.20); RDW 14.9 % (11.5-14.5); WBC 4.81 X 10*3/uL (4.50-10.00)
[2023-11-17 09:51] LABS: BUN/Creat Ratio 9.73 Ratio (12.00-20.00); Blood Urea Nitrogen 10.7 mg/dL (9.0-27.0); Chloride 106 mmol/L (96-109); Glucose 111 mg/dL (70-110); Potassium 3.6 mmol/L (3.5-5.5); Sodium 139 mmol/L (135-145)
[2023-11-17 09:52] LABS: ALT 22 U/L (8-44); AST 17 U/L (13-35); Albumin 3.2 g/dL (3.8-4.9); Albumin/Globulin Ratio 1.28 Ratio (1.60-3.17); Alkaline Phosphatase 85 U/L (41-126); Calcium 8.2 mg/dL (8.7-10.3); Carbon Dioxide 23.1 mmol/L (21.6-31.8); Globulin 2.5 g/dL (1.6-3.3); Total Bilirubin 0.3 mg/dL (0.3-1.2); Total Protein 5.7 g/dL (6.2-8.2)
--- NOTE | 2023-11-17 10:50 | P.CONS ---
History of Present Illness - Reason for Consult Consult date: 11/16/23 Urinary tract infection Requesting physician: Erik Palomino - Chief Complaint Weakness and burning of urine x few days - History of Present Illness Patient is a 68-year-old female with a past medical history significant for COPD hyperlipidemia osteoarthritis rheumatoid arthritis osteoporosis presenting to the hospital for evaluation of burning with urination and confusion apparently symptom has been going on for a day or 2 patient has been evaluated at the PCP office and has been diagnosed with UTI started on antibiotic however the patient did have persistent/worsening symptoms for the patient was brought into the hospital patient denies having any suprapubic or flank pain some nausea but no vomiting no diarrhea no chest pain shortness of breath no cough on presentation to the hospital the patient did have low-grade fever 100.9 F patient was not tachycardic hypotensive or hypoxic no need for supplemental oxygen did have white count of 7.8 kidney function was normal electrolytes normal liver enzymes mildly elevated urine was mildly positive influenza RSV COVID testing was negative blood culture. She currently pending patient did have a chest x-ray did not show an acute pulmonary process patient was started on Rocephin and admitted to hospital infectious disease was consulted for further management of antibiotic therapy Review of Systems Positive point and negatives has been mentioned in the HPI, complete review of systems was performed and all other systems are negative Past Medical History Past Medical History: Asthma, COPD, Hyperlipidemia, Liver Disease, Osteoarthriti s (OA), Rheumatoid Arthritis (RA) Additional Past Medical History / Comment(s): varicose veins, "fatty liver", osteoporosis History of Any Multi-Drug Resistant Organisms: None Reported Past Surgical History: Breast Surgery, Section, Cholecystectomy, Hernia Repair, Orthopedic Surgery Additional Past Surgical History / Comment(s): june carpal tunnel, left breast lumpectomy, left hand index middle trigger finger, right hand, ring and middle trigger finger, Past Anesthesia/Blood Transfusion Reactions: Motion Sickness Past Psychological History: No Psychological Hx Reported Smoking Status: Former smoker Past Alcohol Use History: None Reported Past Drug Use History: None Reported - Past Family History Mother Family Medical History: Cancer Medications and Allergies Home Medications Medication Instructions Recorded Confirmed Type Alendronate Sodium [Fosamax] 70 mg PO Q7D 03/07/16 11/16/23 History Atorvastatin Calcium [Lipitor] 20 mg PO Q7D 03/07/16 11/16/23 History Anastrozole [Arimidex] 1 mg PO DAILY 10/24/23 11/16/23 History Amoxic-Pot Clav 875-125Mg 1 tab PO BID 11/16/23 11/16/23 History [Augmentin 875-125] Cyclobenzaprine [Flexeril] 10 mg PO HS 11/16/23 11/16/23 History PARoxetine HCL [Paxil] 40 mg PO DAILY 11/16/23 11/16/23 History Allergies Allergy/AdvReac Type Severity Reaction Status Date / Time adhesive Allergy Rash/Hives Verified 11/16/23 09:22 bacitracin Allergy Rash/Hives Verified 11/16/23 09:22 [From Neosporin ([id number])] bacitracin zinc Allergy Rash/Hives Verified 11/16/23 09:22 [From Neosporin (aep-dvh-kwcla)] neomycin sulfate Allergy Rash/Hives Verified 11/16/23 09:22 [From Neosporin (wff-zqb-pqlyf)] polymyxin B Allergy Rash/Hives Verified 11/16/23 09:22 [From Neosporin (fdw-hld-sgvmu)] sulfamethoxazole Allergy Rash/Hives Verified 11/16/23 09:22 [From Bactrim] trimethoprim [From Bactrim] Allergy Rash/Hives Verified 11/16/23 09:22 cortisone AdvReac rash @ Verified 11/16/23 09:22 injection site Physical Exam Vitals: Vital Signs Temp Pulse Pulse Resp BP BP BP 11/16/23 09:35 87 18 11/16/23 07:21 98.7 F 87 18 146/84 11/16/23 05:17 98.3 F 69 137/72 11/16/23 04:02 98.7 F 71 18 121/77 11/15/23 23:30 98.9 F 76 16 112/64 11/15/23 21:02 100.9 F H 84 18 130/73 Pulse Ox 11/16/23 09:35 11/16/23 07:21 93 L 11/16/23 05:17 94 L 11/16/23 04:02 96 11/15/23 23:30 95 11/15/23 21:02 94 L Intake and Output 11/15/23 11/16/23 11/16/23 22:59 06:59 14:59 Other: Voiding Method Toilet Toilet Weight 80.286 kg 80.286 kg GENERAL DESCRIPTION: Elderly female lying in bed, no distress. No tachypnea or accessory muscle of respiration use. HEENT: Shows Pallor , no scleral icterus. Oral mucous membrane is dry. No pharyngeal erythema or thrush NECK: Trachea central, no thyromegaly. LUNGS: Unlabored breathing. Clear to auscultation anteriorly. No wheeze or crackle. HEART: S1, S2, regular rate and rhythm. No loud murmur ABDOMEN: Soft, no tenderness , guarding or rigidity, no organomegaly EXTREMITIES: No edema of feet. SKIN: No rash, no masses palpable. NEUROLOGICAL: The patient is awake, alert, oriented x3, mood and affect normal. Results CBC & Chem 7: 11/17/23 05:24 11/17/23 05:24 Labs: Abnormal Lab Results - Last 24 Hours (Table) 11/15/23 11/15/23 11/15/23 Range/Units 22:13 22:13 22:13 Lymphocytes # 0.8 L (1.0-4.8) k/uL Sodium 132 L (137-145) mmol/L Glucose 122 H (74-99) mg/dL AST 41 H (14-36) U/L ALT 37 H (4-34) U/L Urine Protein Trace H (Negative) Urine Ketones Trace H (Negative) Urine Blood Small H (Negative) Ur Leukocyte Esterase Small H (Negative) Urine Mucus Rare H (None) /hpf Assessment and Plan (1) Pyrexia Current Visit: Yes Status: Acute Code(s): R50.9 - FEVER, UNSPECIFIED SNOMED Code(s): 860734409 (2) UTI (urinary tract infection) Current Visit: Yes Status: Acute Code(s): N39.0 - URINARY TRACT INFECTION, SITE NOT SPECIFIED SNOMED Code(s): 65129960 Plan: 1patient presented to hospital with burning micturition confusion has been diagnosed with UTI in the outpatient setting has received antibiotics more likely the reason he was not significantly positive with the patient did have a low-grade fever and likely UTI from enteric gram-negative pathogen. 2continue with Rocephin 2 g daily while waiting for the culture to finalize We will follow on clinical condition and cultures to further adjust medication if needed Thank you for this consultation we will follow the patient along with you Dictation was produced using [employer] dictation software. please excuse any grammatical, word or spelling errors. Time with Patient: Greater than 30
--- NOTE | 2023-11-17 12:59 | P.PN ---
Subjective Progress Note Date: 11/17/23 Principal diagnosis: Reason for follow-up is urinary tract infection Patient is a 68-year-old female with a past medical history significant for COPD hyperlipidemia osteoarthritis rheumatoid arthritis osteoporosis presenting to the hospital for evaluation of burning with urination and confusion admitted to hospital with UTI failing outpatient oral Augmentin therapy. On today's evaluation that is 11/17/2023, Patient is afebrile this morning and denies any chills, patient mention breathing comfortably and is currently on room air, patient denies any chest pain occasional cough patient denies any abdominal pain no diarrhea no nausea no vomiting did have improvement her urinary symptoms. Patient white count is 4.81 creatinine is 1.1 cultures pending Objective - Vital Signs Vital signs: Vital Signs Temp 98.2 F 11/17/23 07:04 Pulse 66 11/17/23 08:10 Resp 17 11/17/23 08:10 BP 131/80 11/17/23 07:04 Pulse Ox 97 11/17/23 07:04 FiO2 Intake & Output 11/16/23 11/17/23 11/17/23 18:59 06:59 18:59 Intake Total 1440 Balance 1440 Weight 80.286 kg Intake: Intake, IV Titration 900 Amount Sodium Chloride 0.9% 1, 900 000 ml @ 75 mls/hr IV . [id number] [facility] Rx#:[id number] Oral 540 Other: Voiding Method Toilet Toilet Bedside Commode # Voids 3 2 - Exam GENERAL DESCRIPTION: An elderly female lying in bed in no distress RESPIRATORY SYSTEM: Unlabored breathing , decreased breath sounds at bases HEART: S1 S2 regular rate and rhythm , ABDOMEN: Soft , no tenderness EXTREMITIES: No edema feet - Labs CBC & Chem 7: 11/17/23 05:24 11/17/23 05:24 Labs: Abnormal Lab Results - Last 24 Hours (Table) 11/16/23 11/16/23 11/17/23 Range/Units 11:33 11:33 05:24 RBC 3.86 L (4.10-5.20) X 10*6/uL Hgb 10.3 L (12.0-15.0) g/dL Hct 32.9 L (37.2-46.3) % MCH 26.7 L (27.0-32.0) pg MCHC 31.3 L (32.0-37.0) g/dL RDW 14.9 H (11.5-14.5) % Eosinophils # 0 L (0.04-0.35) X 10*3/uL ESR 52 H (0-30) mm/Hr Est GFR (CKD-EPI) (>=60) BUN/Creatinine Ratio (12.00-20.00) Ratio Glucose (70-110) mg/dL Calcium (8.7-10.3) mg/dL Total Protein (6.2-8.2) g/dL Albumin (3.8-4.9) g/dL Albumin/Globulin Ratio (1.60-3.17) Ratio Procalcitonin 1.80 H (0.02-0.09) ng/mL 11/17/23 Range/Units 05:24 RBC (4.10-5.20) X 10*6/uL Hgb (12.0-15.0) g/dL Hct (37.2-46.3) % MCH (27.0-32.0) pg MCHC (32.0-37.0) g/dL RDW (11.5-14.5) % Eosinophils # (0.04-0.35) X 10*3/uL ESR (0-30) mm/Hr Est GFR (CKD-EPI) 54 L (>=60) BUN/Creatinine Ratio 9.73 L (12.00-20.00) Ratio Glucose 111 H (70-110) mg/dL Calcium 8.2 L (8.7-10.3) mg/dL Total Protein 5.7 L (6.2-8.2) g/dL Albumin 3.2 L (3.8-4.9) g/dL Albumin/Globulin Ratio 1.28 L (1.60-3.17) Ratio Procalcitonin (0.02-0.09) ng/mL Microbiology - Last 24 Hours (Table) 11/15/23 22:30 Blood Culture - Preliminary Blood 11/15/23 22:13 Blood Culture - Preliminary Blood Assessment and Plan (1) Pyrexia Current Visit: Yes Status: Acute Code(s): R50.9 - FEVER, UNSPECIFIED SNOMED Code(s): 469944094 (2) UTI (urinary tract infection) Current Visit: Yes Status: Acute Code(s): N39.0 - URINARY TRACT INFECTION, SITE NOT SPECIFIED SNOMED Code(s): 35834144 Plan: 1patient presented to hospital with burning micturition confusion has been diagnosed with UTI in the outpatient setting has received antibiotics more likely the reason he was not significantly positive with the patient did have a low-grade fever and likely UTI from enteric gram-negative pathogen. 2patient did have some clinical improvement and will continue with Rocephin 2 g daily while waiting for the culture to finalize Dictation was produced using [employer] dictation software. please excuse any grammatical, word or spelling errors. Time with Patient: Less than 30
--- NOTE | 2023-11-17 13:31 | P.PN ---
Subjective Progress Note Date: 11/17/23 patient is 68-year-old lady with past medical history significant for hyperlipidemia presented to the ER for confusion and burning urination. Patient was brought in by family, patient initially presented to her PCP office where they prescribed her antibiotics for her UTI. Over the course of day, patient's symptoms worsened and she was more confused. Patient was having increased burning with urination and increased frequency of urination. Patient also having fevers at home, no chills. No chest pain or shortness of breath. Patient denies any nausea, vomiting abdominal pain. Initial lab work done in the ER showed WBC 7.8, hemoglobin 11.8, platelet count 175, sodium 132, potassium 4, BUN 15, creatinine 0.99, glucose 122, bilirubin 0.9, AST 41, ALT 37, UA done showed nitrite negative, leukocyte Estrace small amount Influenza A not detected Influenza B not detected RSV not detected COVID-19 not detected Chest x-ray done in the ER showed no acute process CT head done showed no evidence for acute intracranial pathology Patient admitted to internal medicine service 11/16. Patient seen and examined. States she feels much better. No complaint of fevers or chills. REVIEW OF SYSTEMS: CONSTITUTIONAL: No fever, no malaise,. CARDIOVASCULAR: No chest pain, no palpitations, no syncope. PULMONARY: No shortness of breath, no cough, GASTROINTESTINAL: No diarrhea, no nausea, no vomiting, no abdominal pain. NEUROLOGICAL: No headaches, no weakness, PHYSICAL EXAMINATION: GENERAL: The patient is alert and oriented x3, not in any acute distress. Well developed, well nourished. HEENT: Pupils are round and equally reacting to light. EOMI. No scleral icterus. No conjunctival pallor. Normocephalic, atraumatic. No pharyngeal erythema. No thyromegaly. CARDIOVASCULAR: S1 and S2 present. No murmurs, rubs, or gallops. PULMONARY: Chest is clear to auscultation, no wheezing or crackles. ABDOMEN: Soft, nontender, nondistended, normoactive bowel sounds. No palpable organomegaly. MUSCULOSKELETAL: No joint swelling or deformity. EXTREMITIES: No cyanosis, clubbing, or pedal edema. NEUROLOGICAL: Gross neurological examination did not reveal any focal deficits. SKIN: No rashes. Assessment and plan UTI Encephalopathy Hyperlipidemia Monitor vital signs Monitor CBC Monitor CMP Follow-up on blood cultures Follow-up on urine cultures DC fluids Continue IV Rocephin ID following Labs and medication were reviewed.. Continue same treatment. Continue with symptomatic treatment. Resume home medication. Monitor labs and vitals. DVT and GI prophylaxis. Further recommendations as per clinical course of the patient Dictation was produced using [employer] dictation software. please excuse any grammatical, word or spelling errors. Objective - Vital Signs Vital signs: Vital Signs Temp 98.4 F 11/17/23 12:39 Pulse 66 11/17/23 12:39 Resp 17 11/17/23 12:39 BP 116/72 11/17/23 12:39 Pulse Ox 99 11/17/23 12:39 FiO2 Intake & Output 11/16/23 11/17/23 11/17/23 18:59 06:59 18:59 Intake Total 1440 Balance 1440 Weight 80.286 kg Intake: Intake, IV Titration 900 Amount Sodium Chloride 0.9% 1, 900 000 ml @ 75 mls/hr IV . [id number] [facility] Rx#:[id number] Oral 540 Other: Voiding Method Toilet Toilet Bedside Commode # Voids 3 2 1 # Bowel Movements 1 - Labs CBC & Chem 7: 11/17/23 05:24 11/17/23 05:24 Labs: Abnormal Lab Results - Last 24 Hours (Table) 11/16/23 11/16/23 11/17/23 Range/Units 11:33 11:33 05:24 RBC 3.86 L (4.10-5.20) X 10*6/uL Hgb 10.3 L (12.0-15.0) g/dL Hct 32.9 L (37.2-46.3) % MCH 26.7 L (27.0-32.0) pg MCHC 31.3 L (32.0-37.0) g/dL RDW 14.9 H (11.5-14.5) % Eosinophils # 0 L (0.04-0.35) X 10*3/uL ESR 52 H (0-30) mm/Hr Est GFR (CKD-EPI) (>=60) BUN/Creatinine Ratio (12.00-20.00) Ratio Glucose (70-110) mg/dL Calcium (8.7-10.3) mg/dL Total Protein (6.2-8.2) g/dL Albumin (3.8-4.9) g/dL Albumin/Globulin Ratio (1.60-3.17) Ratio Procalcitonin 1.80 H (0.02-0.09) ng/mL 11/17/23 Range/Units 05:24 RBC (4.10-5.20) X 10*6/uL Hgb (12.0-15.0) g/dL Hct (37.2-46.3) % MCH (27.0-32.0) pg MCHC (32.0-37.0) g/dL RDW (11.5-14.5) % Eosinophils # (0.04-0.35) X 10*3/uL ESR (0-30) mm/Hr Est GFR (CKD-EPI) 54 L (>=60) BUN/Creatinine Ratio 9.73 L (12.00-20.00) Ratio Glucose 111 H (70-110) mg/dL Calcium 8.2 L (8.7-10.3) mg/dL Total Protein 5.7 L (6.2-8.2) g/dL Albumin 3.2 L (3.8-4.9) g/dL Albumin/Globulin Ratio 1.28 L (1.60-3.17) Ratio Procalcitonin (0.02-0.09) ng/mL Microbiology - Last 24 Hours (Table) 11/15/23 22:30 Blood Culture - Preliminary Blood 11/15/23 22:13 Blood Culture - Preliminary Blood
[2023-11-18 12:33] VITALS: BP 109/71; PULSE 65; RESP 16; TEMP 98.7
--- NOTE | 2023-11-18 14:45 | P.DS ---
Providers Date of admission: 11/16/23 02:34 Expected date of discharge: 11/18/23 Attending physician: Reynold Esquivel MD Consults: 11/16/23 11:25 Consult Physician Routine Consulting Provider: Steve Carrasco Consult Reason/Comments: UTI Do you want consulting provider notified?: Yes Primary care physician: Reynold Esquivel MD Hospital Course: Final diagnoses Acute UTI, pyrexia, failed outpatient antibiotic treatment Acute metabolic encephalopathy secondary to the above, resolved COPD, stage Hyperlipidemia Osteoarthritis Rheumatoid arthritis Osteoporosis Hospital course: This is a 68-year-old female admitted with acute symptomatic UTI, with low-grade fever on admission on antibiotics outpatient. Evaluated by infectious disease, maintained on ceftriaxone IV with significant clinical improvement. Denies lightheadedness, dizziness or focal deficits. Denies urinary frequency or dysuria .urine culture finalizing. Patient will be discharged home today in a stable condition with guarded prognosis pending final DC recommendations/antibiotics and clearance as per ID. The impression and plan of care has been dictated as directed. : I performed a history and examination of this patient, discussed the same with the dictator. I agree with the dictator's note ,documented as a scribe. Any additional findings or plans will be noted. Patient Condition at Discharge: Stable Plan - Discharge Summary Discharge Rx Participant: No New Discharge Prescriptions: New cefUROXime axetiL [Ceftin] 500 mg PO BID 5 Days #10 tab Continue Atorvastatin Calcium [Lipitor] 20 mg PO Q7D Alendronate Sodium [Fosamax] 70 mg PO Q7D Cyclobenzaprine [Flexeril] 10 mg PO HS Anastrozole [Arimidex] 1 mg PO DAILY PARoxetine HCL [Paxil] 40 mg PO DAILY No Action Amoxic-Pot Clav 875-125Mg [Augmentin 875-125] 1 tab PO BID Discharge Medication List Alendronate Sodium [Fosamax] 70 mg PO Q7D 03/07/16 [History] Atorvastatin Calcium [Lipitor] 20 mg PO Q7D 03/07/16 [History] Anastrozole [Arimidex] 1 mg PO DAILY 10/24/23 [History] Amoxic-Pot Clav 875-125Mg [Augmentin 875-125] 1 tab PO BID 11/16/23 [History] Cyclobenzaprine [Flexeril] 10 mg PO HS 11/16/23 [History] PARoxetine HCL [Paxil] 40 mg PO DAILY 11/16/23 [History] cefUROXime axetiL [Ceftin] 500 mg PO BID 5 Days #10 tab 11/18/23 [Rx] Follow up Appointment(s)/Referral(s): Reynold Esquivel MD [Primary Care Provider] - 11/21/23 11:15 am (You will be seen at the [place].) Patient Instructions/Handouts: Cefuroxime (By mouth), Urinary Tract Infection in Women (DC)
--- NOTE | 2023-11-19 14:31 | P.PN ---
Subjective Progress Note Date: 11/18/23 Principal diagnosis: Reason for follow-up is urinary tract infection Patient is a 68-year-old female with a past medical history significant for COPD hyperlipidemia osteoarthritis rheumatoid arthritis osteoporosis presenting to the hospital for evaluation of burning with urination and confusion admitted to hospital with UTI failing outpatient oral Augmentin therapy. On today's evaluation that is 11/18/2023,the patient denies any fever or any chills, patient is breathing comfortably on room air, the patient denies chest pain shortness of breath and no significant cough, patient denies abdominal pain, no nausea vomiting or diarrhea. Patient mention feeling better improvement in her urinary symptoms as well. No new labs were drawn today culture has been negative so far Objective - Vital Signs Vital signs: Vital Signs Temp 98.7 F 11/18/23 12:14 Pulse 65 11/18/23 12:14 Resp 16 11/18/23 12:14 BP 109/71 11/18/23 12:14 Pulse Ox 97 11/18/23 12:14 FiO2 Intake & Output 11/17/23 11/18/23 11/18/23 18:59 06:59 18:59 Intake Total 1620 Balance 1620 Intake: Oral 1620 Other: Voiding Method Bedside Commode Bedside Commode Bedside Commode # Voids 1 5 # Bowel Movements 1 - Exam GENERAL DESCRIPTION: An elderly female lying in bed in no distress RESPIRATORY SYSTEM: Unlabored breathing , decreased breath sounds at bases HEART: S1 S2 regular rate and rhythm , ABDOMEN: Soft , no tenderness EXTREMITIES: No edema feet - Labs CBC & Chem 7: 11/17/23 05:24 11/17/23 05:24 Labs: Microbiology - Last 24 Hours (Table) 11/16/23 11:50 Urine Culture - Final Urine,Voided 11/15/23 22:30 Blood Culture - Preliminary Blood 11/15/23 22:13 Blood Culture - Preliminary Blood Assessment and Plan (1) Pyrexia Status: Acute Code(s): R50.9 - FEVER, UNSPECIFIED SNOMED Code(s): 588474180 (2) UTI (urinary tract infection) Status: Acute Code(s): N39.0 - URINARY TRACT INFECTION, SITE NOT SPECIFIED SNOMED Code(s): 27294207 Plan: 1patient presented to hospital with burning micturition confusion has been diagnosed with UTI in the outpatient setting has received antibiotics more likely the reason he was not significantly positive with the patient did have a low-grade fever and likely UTI from enteric gram-negative pathogen. 2patient did have clinical improvement with ceftriaxone with a culture negative will recommend short course of oral Ceftin on discharge prescription was sent to the pharmacy Dictation was produced using [employer] dictation software. please excuse any gr ammatical, word or spelling errors. Time with Patient: Less than 30
[2023-11-23] MEDS ORDERED: ATORVASTATIN 20 MG TAB PO SCH (09:00)
== END 2023-11-18 14:51 | disposition home or self-care (01) ==
LOC: EC 20:53 → 5NMEDONC 11-16 02:34
PROVIDERS: ADMIT Family Medicine; ATTEND Family Medicine
DX: R50.9 Fever, unspecified (principal); N39.0 Urinary tract infection, site not specified; J44.9 Chronic obstructive pulmonary disease, unspecified; E78.5 Hyperlipidemia, unspecified; M19.90 Unspecified osteoarthritis, unspecified site; M06.9 Rheumatoid arthritis, unspecified; M81.0 Age-related osteoporosis without current pathological fracture; Z87.891 Personal history of nicotine dependence; Z79.83 Long term (current) use of bisphosphonates; Z79.811 Long term (current) use of aromatase inhibitors; K76.0 Fatty (change of) liver, not elsewhere classified; J44.89 Other specified chronic obstructive pulmonary disease
CPT/HCPCS: 96361 ×3; 96366 ×2; 96365; 96375; 99285; 36415; 80053 ×2; 85652; 83605; 83690; 85025 ×2; 86140; 81001; 87040; 87086; 84145; 87636; 71046; 70450; G0378 ×3; J0696 ×4

== ENCOUNTER → 2023-11-21 | Outpatient (CLI) | payer MEDICARE ==
[2023-11-21 09:21] VITALS: BP 144/78; PULSE 81; RESP 17; TEMP 98.2
--- NOTE | 2023-11-21 09:32 | P.PN ---
Subjective Progress Note Date: 11/21/23 Principal diagnosis: radial scar right breast 11-21-23 radial scar right breast Jeimy is a 67 year old female seen in consultation for Yolanda Mann regarding a core biopsy of the right breast showing a radial scar. She had a bilateral mammogram on 12-05-21 which led to a right breast ultrasound and right diagnostic mammogram. A 6 mm lesioin was noted and 3 month follow up was recommended. She had a repeat right breast ultrasound on 07-12-22 which showed the lesion had increased to 6 mm in dimension from 4 mm. A core biopsy was done showing a radial scar. The patient did not feel any lumps masses or nodules of concern in either breast. She tolerated the biopsy without difficulty. She did have a left breast biopsy many years ago for calcium deposits this was not cancer. She was not complaining of any recent trauma or infection in the breast. She was not complaining of any nipple discharge or skin changes. The patient on 01-15-23 underwent an open biopsy , pathology radial scar, focal ADH/FEA She was referred to medical oncology, she is on Anestrazole Dr. Rodger Bauer She is not concerned about any new lesions in either breast, she does not feel any new lumps masses or nodules of concern in either breast She had a right breast mammogram in 07-18-2023 this was BI-RADS 0 and an ultrasound was recommended this was done on the same date which showed 2 adjacent prominent lymph nodes and the cortex was thickened up to 3.7 mm suspecting a reactive postinflammatory etiology, 3-month follow-up was recommended to reassess 11-21-23 A repeat ultrasound of the right breast was done on 10-23-23. This showed a mass like area which was at the 10:00 position. And the nodes remained enlarged. A biopsy was recommended. This was done on 11-08-23 and was fibrous scar and fat necrosis. This is personally reviewed with DR. Irizarry and felt to be benign concordant. She is not complaining of any new lumps masses or nodules of concern in either breast. Caffeine: 12 cup/day nicotine:stopped 7 years ago, used to smoke 1 1/2 PPD for 40 years chocolate: daily BCP: 30 years Family History: mother: colon cancer at 57 son: leukemia brother: pancreatic cancer nephew: melanoma bottom of foot niece: breast cancer Hormonal History: menarche: 8 M1 breat fed: no, age at first : 18 menopause: 38 hormones: none Surgical History; gallbladder hernia all teeth removed left breast biopsy Medical History: high cholesterol COPD/asthma arthritis UTI hospitalized just released 3 days ago, doing well now Social History: nicotine: as above alcohol: none drugs: none - Constitutional Constitutional: Denies chills, Denies fever - EENT Eyes: denies blurred vision, denies pain Ears: deny: decreased hearing, tinnitus Ears, nose, mouth and throat: Denies headache, Denies sore throat - Breasts Breasts: bilateral: as per HPI - Cardiovascular Cardiovascular: Reports shortness of breath, Denies chest pain - Respiratory Respiratory: Denies cough - Gastrointestinal Gastrointestinal: Denies abdominal pain, Denies diarrhea, Denies nausea, Denies vomiting - Genitourinary (Female) Genitourinary: Denies dysuria, Denies hematuria - Menstruation Menstruation: Reports postmenopausal - Musculoskeletal Musculoskeletal: Reports myalgias - Integumentary Integumentary: Denies pruritus, Denies rash - Neurological Neurological: Denies numbness, Denies weakness - Psychiatric Psychiatric: Reports anxiety, Reports depression - Endocrine Endocrine: Denies fatigue, Denies weight change - Hematologic/Lymphatic Comment: none - Allergic/Immunologic Allergic/Immunologic: Reports as per HPI, Reports seasonal allergies Past Medical History Past Medical History: Asthma, COPD, Hyperlipidemia, Liver Disease, Osteoarthritis (OA), Rheumatoid Arthritis (RA) Additional Past Medical History / Comment(s): varicose veins, "fatty liver", osteoporosis History of Any Multi-Drug Resistant Organisms: None Reported Past Surgical History: Breast Surgery, Section, Cholecystectomy, Hernia Repair, Orthopedic Surgery Additional Past Surgical History / Comment(s): june carpal tunnel, left breast lumpectomy, left hand index middle trigger finger, right hand, ring and middle trigger finger Past Anesthesia/Blood Transfusion Reactions: Motion Sickness Past Psychological History: No Psychological Hx Reported Smoking Status: Former smoker Past Alcohol Use History: None Reported Additional Past Alcohol Use History / Comment(s): quit smoking 06/2015, smoked for 40 yrs Past Drug Use History: None Reported - Past Family History Mother Family Medical History: Cancer Medications and Allergies Home Medications Medication Instructions Recorded Confirmed Type Alendronate Sodium [Fosamax] 70 mg PO SA 03/07/16 10/11/22 History Atorvastatin Calcium [Lipitor] 20 mg PO SA 03/07/16 10/11/22 History Albuterol Inhaler [Ventolin Hfa 1 - 2 puff INHALATION Q6HR PRN #1 07/13/17 10/11/22 Rx Inhaler] inhaler Loratadine [Claritin] 10 mg PO DAILY 12/02/19 10/11/22 History PARoxetine [Paxil] 10 mg PO DAILY 12/02/19 10/11/22 History Allergies Allergy/AdvReac Type Severity Reaction Status Date / Time adhesive Allergy Rash/Hives Verified 10/11/22 08:51 bacitracin Allergy Rash/Hives Verified 10/11/22 08:51 [From Neosporin ([id number])] bacitracin zinc Allergy Rash/Hives Verified 10/11/22 08:51 [From Neosporin ([id number])] neomycin sulfate Allergy Rash/Hives Verified 10/11/22 08:51 [From Neosporin ([id number])] polymyxin B Allergy Rash/Hives Verified 10/11/22 08:51 [From Neosporin ([id number])] sulfamethoxazole Allergy Rash/Hives Verified 10/11/22 08:51 [From Bactrim] trimethoprim [From Bactrim] Allergy Rash/Hives Verified 10/11/22 08:51 cortisone AdvReac rash @ Verified 10/11/22 08:51 injection site Objective - Constitutional General appearance: Present: cooperative - EENT Eyes: Present: EOMI ENT: Present: hearing grossly normal - Neck Neck: Present: normal ROM - Respiratory Respiratory: bilateral: CTA - Cardiovascular Rhythm: regular Heart sounds: normal: S1, S2 - Gastrointestinal General gastrointestinal: Present: soft - Integumentary Integumentary: Present: normal turgor - Musculoskeletal Musculoskeletal: Present: gait normal - Psychiatric Psychiatric: Present: A&O x's 3, appropriate affect, intact judgment & insight - Additional findings Additional findings: Breast Exam: BRA: does not wear one inspection: Probable cup size approximately C, bilateral grade 3 ptosis, mild echymosis right breast from biopsy Palpation: Right breast: Multi-positional exam no dominant masses or nodules of concern, mild echymosis right breast at biopsy site Right axilla: No adenopathy of concern Left breast: Multi-positional exam well-healed scar from prior biopsy, no dominant masses or nodules of concern Left axilla: No adenopathy of concern Assessment and Plan Assessment: Impression: Fibrocystic breast changes Patient's status post right breast needle localization excision of atypical ductal hyperplasia Patient presently on anastrozole Recent right breast mammogram and ultrasound revealed some lymph nodes with borderline thickening of the cortex the impression was probable postinflammatory repeat right breast ultrasound and axillary ultrasound in 3 months with examination at that time, mammogram in 3 months Right breast core biopsy on 11-08-2023 benign concordant Plan: Bilateral mammogram and right breast axillary ultrasound in 3 months with physician exam at that time Patient to follow-up sooner any questions or concerns CC: Dr. Esquivel
== END ==
LOC: WWCWWP 08:45
PROVIDERS: ATTEND Surgery
DX: R92.8 Other abnormal and inconclusive findings on diagnostic imaging of breast (principal); N64.89 Other specified disorders of breast; N60.11 Diffuse cystic mastopathy of right breast; N60.12 Diffuse cystic mastopathy of left breast; N60.91 Unspecified benign mammary dysplasia of right breast; Z87.891 Personal history of nicotine dependence; Z80.3 Family history of malignant neoplasm of breast; Z98.890 Other specified postprocedural states; Z91.048 Other nonmedicinal substance allergy status; Z88.1 Allergy status to other antibiotic agents; Z88.2 Allergy status to sulfonamides; Z88.8 Allergy status to other drugs, medicaments and biological substances

== ENCOUNTER → 2024-08-19 | Outpatient (CLI) | payer MEDICARE, OTHER ==
--- NOTE | 2024-08-19 14:29 | USB ---
Reason for Exam: Follow-up at short interval from prior study. Patient History: Menarche at age 10. First Full-Term at age 17. Postmenopausal. 11/08/2023, Benign US biopsy breast VAD RT on the right side. 01/15/2023, Lumpectomy on the Right side. 01/15/2023, Benign MG pre op needle loc RT on the right side. 08/02/2022, High risk US biopsy breast VAD RT on the right side. Benign Excisional Biopsy on the left side. Niece had breast cancer, age 40. Risk Values: Jazmyn 5 year model risk: 1.9%. NCI Lifetime model risk: 5.2%. Technique: Method: Targeted. Patient Position: Supine. Prior Study Comparison: 01/10/2023 Bilateral MG 3D diag mammo w/cad ERROL, [facility]. 07/18/2023 Right MG 3D diag mammo w/cad RT, [facility]. 11/08/2023 Right MG diagnostic mammo RT wo CAD, [facility]. Findings: The axilla of the right breast was scanned. Ultrasound of the right axilla was performed. Again noted are mildly prominent right axillary lymph nodes unchanged in overall size and morphology measuring measuring 1.9 cm in length by 0.9 cm and 1.5 cm x 2 cm. One of the lymph nodes demonstrates cortical thickening of 4 mm versus nearly 4 mm previously and a second lymph node measures cortical thickening of 0.34 cm unchanged from prior study. Need to biopsy should be made on a clinical basis. Continued follow-up could be performed. Overall Assessment: Probably benign, BI-RAD 3 Management: Diagnostic Breast Ultrasound of the right breast in 6 months. A clinical breast exam by your physician is recommended on an annual basis and results should be correlated with mammographic findings. This exam should not preclude additional follow-up of suspicious palpable abnormalities. Results were given to the patient verbally at the time of exam. [facility], , 08/19/2024 2:26 PM. Electronically signed and approved by: Tony Heath M.D. Radiologis
--- NOTE | 2024-08-25 12:22 | MM ---
Reason for Exam: Hx of breast cancer, conservation therapy. Last mammogram was performed 1 year(s) and 7 month(s) ago. Patient History: Menarche at age 10. First Full-Term at age 17. Postmenopausal. 11/08/2023, Benign US biopsy breast VAD RT on the right side. 01/15/2023, Lumpectomy on the Right side. 01/15/2023, Benign MG pre op needle loc RT on the right side. 08/02/2022, High risk US biopsy breast VAD RT on the right side. Benign Excisional Biopsy on the left side. Niece had breast cancer, age 40. Risk Values: Jazmyn 5 year model risk: 1.9%. NCI Lifetime model risk: 5.2%. Tissue Density: There are scattered areas of fibroglandular density. Findings: Analyzed By CAD. No persistent mass. Postoperative distortion right breast from prior lumpectomy. Prominent right axillary lymph node persists. Overall Assessment: Incomplete: need additional imaging evaluation, BI-RAD 0 Management: Diagnostic Breast Ultrasound of the right breast. . Results were given to the patient verbally at the time of exam. Patient should continue monthly self-breast exams. A clinical breast exam by your physician is recommended on an annual basis. This exam should not preclude additional follow-up of suspicious palpable abnormalities. Note on Jazmyn scores and lifetime risk: 1. A Jazmyn score greater than 3% is considered moderate risk. If this is the case, consider specialist referral to assess eligibility for a risk reducing agent. 2. If overall lifetime risk for the development of breast cancer is 20% or higher, the patient may qualify for future screening with alternating mammogram and breast MRI. [facility], , 08/19/2024 1:41 PM. Electronically signed and approved by: Tony Heath M.D. Radiologis
== END | disposition home or self-care (01) ==
LOC: RADMAMWWP 13:08
PROVIDERS: ATTEND Surgery
DX: R92.8 Other abnormal and inconclusive findings on diagnostic imaging of breast (principal); R92.323 Mammographic fibroglandular density, bilateral breasts; Z78.0 Asymptomatic menopausal state; Z80.3 Family history of malignant neoplasm of breast
CPT/HCPCS: 77062; 77066

== ENCOUNTER → 2024-10-08 | Outpatient (CLI) | payer MEDICARE ==
[2024-10-08 13:26] VITALS: BP 138/85; PULSE 87; RESP 17; TEMP 97.8
--- NOTE | 2024-10-08 13:36 | P.PN ---
Subjective Progress Note Date: 10/08/24 Principal diagnosis: prominate right axilla node 10-08-24 Principal diagnosis: radial scar right breast Jeimy is a 67 year old female seen in consultation for Yolanda Mann regarding a core biopsy of the right breast showing a radial scar. She had a bilateral mammogram on 12-05-21 which led to a right breast ultrasound and right diagnostic mammogram. A 6 mm lesioin was noted and 3 month follow up was recommended. She had a repeat right breast ultrasound on 07-12-22 which showed the lesion had increased to 6 mm in dimension from 4 mm. A core biopsy was done showing a radial scar. The patient did not feel any lumps masses or nodules of concern in either breast. She tolerated the biopsy without difficulty. She did have a left breast biopsy many years ago for calcium deposits this was not cancer. She was not complaining of any recent trauma or infection in the breast. She was not complaining of any nipple discharge or skin changes. The patient on 01-15-23 underwent an open biopsy , pathology radial scar, focal ADH/FEA She was referred to medical oncology, she is on Anestrazole Dr. Rodger Bauer She is not concerned about any new lesions in either breast, she does not feel any new lumps masses or nodules of concern in either breast She had a right breast mammogram in 07-18-2023 this was BI-RADS 0 and an ultrasound was recommended this was done on the same date which showed 2 adjacent prominent lymph nodes and the cortex was thickened up to 3.7 mm suspecting a reactive postinflammatory etiology, 3-month follow-up was recommended to reassess 11-21-23 A repeat ultrasound of the right breast was done on 10-23-23. This showed a mass like area which was at the 10:00 position. And the nodes remained enlarged. A biopsy was recommended. This was done on 11-08-23 and was fibrous scar and fat necrosis. This is personally reviewed with DR. Irizarry and felt to be benign concordant. She is not complaining of any new lumps masses or nodules of concern in either breast. 10-09-23 [facility] Mildly prominate right axillary node, BIRAD 3, right breast /axilla ultrasound in 6 months. The patient has no complaints of any lumps masses or nodules of concern in either breast. She does not feel any adenopathy of concern. She is not complaining of any fever or chills. Caffeine: 12 cup/day nicotine:stopped 7 years ago, used to smoke 1 1/2 PPD for 40 years chocolate: daily BCP: 30 years Family History: mother: colon cancer at 57 son: leukemia brother: pancreatic cancer nephew: melanoma bottom of foot niece: breast cancer Hormonal History: menarche: 8 M1 breat fed: no, age at first : 18 menopause: 38 hormones: none Surgical History; gallbladder hernia all teeth removed left breast biopsy Medical History: high cholesterol COPD/asthma arthritis UTI hospitalized just released 3 days ago, doing well now Social History: nicotine: as above alcohol: none drugs: none - Constitutional Constitutional: Denies chills, Denies fever - EENT Eyes: denies blurred vision, denies pain Ears: deny: decreased hearing, tinnitus Ears, nose, mouth and throat: Denies headache, Denies sore throat - Breasts Breasts: bilateral: as per HPI - Cardiovascular Cardiovascular: Reports shortness of breath, Denies chest pain - Respiratory Respiratory: Denies cough - Gastrointestinal Gastrointestinal: Denies abdominal pain, Denies diarrhea, Denies nausea, Denies vomiting - Genitourinary (Female) Genitourinary: Denies dysuria, Denies hematuria - Menstruation Menstruation: Reports postmenopausal - Musculoskeletal Musculoskeletal: Reports myalgias - Integumentary Integumentary: Denies pruritus, Denies rash - Neurological Neurological: Denies numbness, Denies weakness - Psychiatric Psychiatric: Reports anxiety, Reports depression - Endocrine Endocrine: Denies fatigue, Denies weight change - Hematologic/Lymphatic Comment: none - Allergic/Immunologic Allergic/Immunologic: Reports as per HPI, Reports seasonal allergies Past Medical History Past Medical History: Asthma, COPD, Hyperlipidemia, Liver Disease, Osteoarthritis (OA), Rheumatoid Arthritis (RA) Additional Past Medical History / Comment(s): varicose veins, "fatty liver", osteoporosis History of Any Multi-Drug Resistant Organisms: None Reported Past Surgical History: Breast Surgery, Section, Cholecystectomy, Hernia Repair, Orthopedic Surgery Additional Past Surgical History / Comment(s): june carpal tunnel, left breast lumpectomy, left hand index middle trigger finger, right hand, ring and middle trigger finger Past Anesthesia/Blood Transfusion Reactions: Motion Sickness Past Psychological History: No Psychological Hx Reported Smoking Status: Former smoker Past Alcohol Use History: None Reported Additional Past Alcohol Use History / Comment(s): quit smoking 06/2015, smoked for 40 yrs Past Drug Use History: None Reported - Past Family History Mother Family Medical History: Cancer Medications and Allergies Home Medications Medication Instructions Recorded Confirmed Type Alendronate Sodium [Fosamax] 70 mg PO SA 03/07/16 10/11/22 History Atorvastatin Calcium [Lipitor] 20 mg PO SA 03/07/16 10/11/22 History Albuterol Inhaler [Ventolin Hfa 1 - 2 puff INHALATION Q6HR PRN #1 07/13/17 10/11/22 Rx Inhaler] inhaler Loratadine [Claritin] 10 mg PO DAILY 12/02/19 10/11/22 History PARoxetine [Paxil] 10 mg PO DAILY 12/02/19 10/11/22 History Allergies Allergy/AdvReac Type Severity Reaction Status Date / Time adhesive Allergy Rash/Hives Verified 10/11/22 08:51 bacitracin Allergy Rash/Hives Verified 10/11/22 08:51 [From Neosporin ([id number])] bacitracin zinc Allergy Rash/Hives Verified 10/11/22 08:51 [From Neosporin ([id number])] neomycin sulfate Allergy Rash/Hives Verified 10/11/22 08:51 [From Neosporin ([id number])] polymyxin B Allergy Rash/Hives Verified 10/11/22 08:51 [From Neosporin ([id number])] sulfamethoxazole Allergy Rash/Hives Verified 10/11/22 08:51 [From Bactrim] trimethoprim [From Bactrim] Allergy Rash/Hives Verified 10/11/22 08:51 cortisone AdvReac rash @ Verified 10/11/22 08:51 injection site Objective - Vital Signs Vital signs: Intake & Output 10/07/24 10/08/24 10/08/24 18:59 06:59 18:59 Weight 83.007 kg - Constitutional General appearance: Present: cooperative - EENT Eyes: Present: EOMI ENT: Present: hearing grossly normal - Neck Neck: Present: normal ROM - Respiratory Respiratory: bilateral: CTA - Cardiovascular Rhythm: regular Heart sounds: normal: S1, S2 - Integumentary Integumentary: Present: normal turgor - Musculoskeletal Musculoskeletal: Present: gait normal - Psychiatric Psychiatric: Present: A&O x's 3, appropriate affect, intact judgment & insight - Additional findings Additional findings: Breast Exam: BRA: does not wear one inspection: Probable cup size approximately C, bilateral grade 3 ptosis Palpation: Right breast: Multi-positional exam no dominant masses or nodules of concern Right axilla: No adenopathy of concern Left breast: Multi-positional exam well-healed scar from prior biopsy, no dominant masses or nodules of concern Left axilla: No adenopathy of concern The patient has no cervical, axillary, or groin adenopathy of concern. She has no hepatomegaly or splenomegaly. Assessment and Plan Assessment: Impression: Fibrocystic breast changes Patient's status post right breast needle localization excision of atypical ductal hyperplasia Patient presently on anastrozole Recent right breast mammogram and ultrasound revealed some lymph nodes with borderline thickening of the cortex the impression was probable postinflammatory repeat right breast ultrasound and axillary ultrasound in 3 months with examination at that time, mammogram in 3 months Right breast core biopsy on 11-08-2023 benign concordant bilateral mammogram and right axilla ultrasound BIRAD 3; prominate right axilla node not palpable and stable Plan: right axilla ultrasound in 6 months with appointment Patient to follow-up sooner any questions or concerns CC: Dr. Esquivel
== END ==
LOC: WWCWWP 12:51
PROVIDERS: ATTEND Surgery
DX: Z12.31 Encounter for screening mammogram for malignant neoplasm of breast (principal); N60.19 Diffuse cystic mastopathy of unspecified breast; N60.81 Other benign mammary dysplasias of right breast; Z79.811 Long term (current) use of aromatase inhibitors; Z87.891 Personal history of nicotine dependence; Z88.1 Allergy status to other antibiotic agents; Z88.2 Allergy status to sulfonamides; Z88.8 Allergy status to other drugs, medicaments and biological substances; Z91.048 Other nonmedicinal substance allergy status

== ENCOUNTER 2024-11-21 19:27 | Emergency (ER) | payer MEDICARE ==
[2024-11-21 19:31] VITALS: RESP 18
--- NOTE | 2024-11-21 19:50 | ED ---
General Adult HPI - General Chief complaint: Urogenital Stated complaint: weakness Time Seen by Provider: 11/21/24 19:34 Source: patient Mode of arrival: wheelchair Limitations: no limitations - History of Present Illness Initial comments: Dictation was produced using [employer] dictation software. please excuse any grammatical, word or spelling errors. Chief Complaint: 69-year-old female presents to the emergency department for body aches and cough History of Present Illness: Patient 69-year-old female presents emergency department with family member. Patient presents to the ER with total body aches. She has been allegedly a little weak and would like to be tested by family for UTI. Patient states she has a cough. Denies any chest pain. No a bdominal pain no diarrhea. No obvious sick contacts. The ROS documented in this emergency department record has been reviewed and confirmed by me. Those systems with pertinent positive or negative responses have been documented in the HPI. All other systems are other negative and/or noncontributory. - Related Data Home Medications Medication Instructions Recorded Confirmed Alendronate Sodium [Fosamax] 70 mg PO Q7D 03/07/16 10/08/24 Atorvastatin Calcium [Lipitor] 20 mg PO Q7D 03/07/16 10/08/24 Anastrozole [Arimidex] 1 mg PO DAILY 10/24/23 10/08/24 Amoxic-Pot Clav 875-125Mg 1 tab PO BID 11/16/23 10/08/24 [Augmentin 875-125] Cyclobenzaprine [Flexeril] 10 mg PO HS 11/16/23 10/08/24 PARoxetine HCL [Paxil] 40 mg PO DAILY 11/16/23 10/08/24 Previous Rx's Medication Instructions Recorded cefuroxime axetiL [Ceftin] 500 mg PO BID 5 Days #10 tab 11/18/23 Allergies Allergy/AdvReac Type Severity Reaction Status Date / Time adhesive Allergy Rash/Hives Verified 11/21/24 19:31 bacitracin Allergy Rash/Hives Verified 11/21/24 19:31 [From Neosporin ([id number])] bacitracin zinc Allergy Rash/Hives Verified 11/21/24 19:31 [From Neosporin ([id number])] neomycin sulfate Allergy Rash/Hives Verified 11/21/24 19:31 [From Neosporin ([id number])] polymyxin B Allergy Rash/Hives Verified 11/21/24 19:31 [From Neosporin ([id number])] sulfamethoxazole Allergy Rash/Hives Verified 11/21/24 19:31 [From Bactrim] trimethoprim [From Bactrim] Allergy Rash/Hives Verified 11/21/24 19:31 cortisone AdvReac rash @ Verified 11/21/24 19:31 injection site Review of Systems ROS Statement: Those systems with pertinent positive or pertinent negative responses have been documented in the HPI. ROS Other: All systems not noted in ROS Statement are negative. Past Medical History Past Medical History: Asthma, COPD, Hyperlipidemia, Liver Disease, Osteoarthritis (OA), Rheumatoid Arthritis (RA) Additional Past Medical History / Comment(s): varicose veins, "fatty liver", osteoporosis History of Any Multi-Drug Resistant Organisms: None Reported Past Surgical History: Breast Surgery, Section, Cholecystectomy, Hernia Repair, Orthopedic Surgery Additional Past Surgical History / Comment(s): june carpal tunnel, left breast lumpectomy, left hand index middle trigger finger, right hand, ring and middle trigger finger, Past Anesthesia/Blood Transfusion Reactions: Motion Sickness Past Psychological History: No Psychological Hx Reported Smoking Status: Former smoker Past Alcohol Use History: None Reported Past Drug Use History: None Reported - Past Family History Mother Family Medical History: Cancer General Exam - General Exam Comments Initial Comments: PHYSICAL EXAM: General Impression: Alert and oriented x3, not in acute distress HEENT: Normocephalic atraumatic, extra-ocular movements intact, pupils equal and reactive to light bilaterally, mucous membranes moist. Cardiovascular: Heart regular rate and rhythm Chest: Able to complete full sentences, no retractions, no tachypnea Abdomen: abdomen soft, non-tender, non-distended, no organomegaly Musculoskeletal: Pulses present and equal in all extremities, no peripheral edema Motor: no focal deficits noted Neurological: CN II-XII grossly intact, no focal motor or sensory deficits noted Skin: Intact with no visualized rashes Psych: Normal affect and mood Limitations: no limitations Course Vital Signs 11/21/24 19:28 Temperature 100.1 F H Pulse Rate 89 Respiratory 18 Rate Blood Pressure 148/68 O2 Sat by Pulse 96 Oximetry Medical Decision Making - Medical Decision Making Was pt. sent in by a medical professional or institution (, PA, [employer], urgent care, hospital, or senior living...) When possible be specific @ -No Did you speak to anyone other than the patient for history (EMS, parent, family, police, friend...)? What history was obtained from this source @ -No Did you review nursing and triage notes (agree or disagree)? Why? @ -I reviewed and agree with nursing and triage notes Were old charts reviewed (outside hosp., previous admission, EMS record, old EKG, old radiological studies, urgent care reports/EKG's, senior living records)? Report findings @ -No old charts were reviewed Differential Diagnosis (chest pain, altered mental status, abdominal pain women, abdominal pain men, vaginal bleeding, musculoskeletal, weakness, fever, dyspnea, syncope, headache, dizziness, GI bleed, back pain, seizure, CVA, palpatations, mental health)? @ -Differential Weakness: Hypoglycemia, shock, sepsis, hyponatremia, anemia, infection, MT, ETOH, adverse medicine reaction, overdose, stroke, this is not meant to be an all-inclusive list. EKG interpreted by me (3pts min.). @ -None done X-rays interpreted by me (1pt min.). @ -Chest x-ray is nonacute CT interpreted by me (1pt min.). @ -None done U/S interpreted by me (1pt. min.). @ -None done What testing was considered but not performed or refused? (CT, X-rays, U/S, labs)? Why? @ -None What meds were considered but not given or refused? Why? @ -None Was smoking cessation discussed for >3mins.? @ -No Were there social determinants of health that impacted care today? How? (Homelessness, low income, unemployed, alcoholism, drug addiction, transportation, low edu. Level, literacy, decrease access to med. care, penitentiary, rehab)? @ -No Was there de-escalation of care discussed even if they declined (Discuss DNR or withdrawal of care, Hospice)? DNR status @ -No What co-morbidities impacted this encounter? (DM, HTN, Smoking, COPD, CAD, Cancer, CVA, ARF, Chemo, Hep., AIDS, mental health diagnosis, sleep apnea, morbid obesity)? @ -None Was patient admitted / discharged? Hospital course, mention meds given and route, prescriptions, significant lab abnormalities, going to OR and other pertinent info. @ -69-year-old female presents to the emergency department with weakness, myalgias and cough. Vital signs s shows low-grade temperature 100.1 otherwise rest of vital signs within acceptable limits. Labs unremarkable. No lakisha kocytosis. Metabolic panel is negative. No lactic acidosis. Urinalysis negative. Viral testing negative. Chest x-ray nonacute. Patient reevaluated at bedside after given Toradol and IV fluids with improvement of symptoms. Likely patient dealing with URI. Advised discharge and follow-up with primary care doctor. Did you discuss the management of the patient with other professionals (gracie eid i.e. , PA, [employer], lab, RT, psych nurse, social services designee, multi operation machine operator, teacher, staff mine warfare officer, case management social worker)? Give summary @ -No Was critical care preformed (if so, how long)? @ -No Undiagnosed new problem with uncertain prognosis? @ -No Drug Therapy requiring intensive monitoring for toxicity (Heparin, Nitro, Insulin, Cardizem)? @ -No Were any procedures done? @ -No Diagnosis/symptom? Acute, or Chronic, or Acute on Chronic? Uncomplicated (without systemic symptoms) or Complicated (systemic symptoms)? @ -URI Side effects of treatment? @ -No Exacerbation, Progression, or Severe Exacerbation? @ -No Poses a threat to life or bodily function? How? (Chest pain, USA, MT, pneumonia, PE, COPD, DKA, ARF, appy, cholecystitis, CVA, Diverticulitis, Homicidal, Suicidal, threat to staff... and all critical care pts) @ -No - Lab Data Result diagrams: 11/21/24 20:21 11/21/24 20:21 Lab Results 11/21/24 11/21/24 11/21/24 Range/Units 20:07 20:21 20:21 WBC 4.52 (4.50-10.00) 10*3/uL RBC 4.62 (4.10-5.20) 10*6/uL Hgb 12.3 (12.0-15.0) g/dL Hct 37.8 (37.2-46.3) % MCV 81.8 (80.0-97.0) fL MCH 26.6 L (27.0-32.0) pg MCHC 32.5 (32.0-37.0) g/dL Plt Count 201 (140-440) 10*3/uL MPV 10.8 (9.5-12.2) fL Immature Gran % (Auto) 0.2 % Neutrophils % 75.9 % Lymphocytes % 14.2 % Monocytes % 9.5 % Eosinophils % 0.0 % Basophils % 0.2 % Immature Gran # 0.01 (0.00-0.04) 10*3/uL Neutrophils # 3.43 (1.80-7.70) 10*3/uL Lymphocytes # 0.64 L (0.90-5.00) 10*3/uL Monocytes # 0.43 (0.20-1.00) 10*3/uL Eosinophils # 0.00 L (0.04-0.35) 10*3/uL Basophils # 0.01 (0.00-0.10) 10*3/uL Sodium 138 (137-145) mmol/L Potassium 4.1 (3.5-5.1) mmol/L Chloride 104 (98-107) mmol/L Carbon Dioxide 24 (22-30) mmol/L Anion Gap 10 mmol/L BUN 12 (7-17) mg/dL Creatinine 1.04 (0.52-1.04) mg/dL Est GFR (CKD-EPI)AfAm 63 (>60 ml/min/1.73 sqM) Est GFR (CKD-EPI)NonAf 54 (>60 ml/min/1.73 sqM) Glucose 106 H (74-99) mg/dL Plasma Lactic Acid Gio (0.7-2.0) mmol/L Calcium 9.0 (8.4-10.2) mg/dL Urine Color Urine Appearance (Clear) Urine pH (5.0-8.0) Ur Specific [place] (1.001-1.035) Urine Protein (Negative) Urine Glucose (UA) (Negative) Urine Ketones (Negative) Urine Blood (Negative) Urine Nitrite (Negative) Urine Bilirubin (Negative) Urine Urobilinogen (<2.0) mg/dL Ur Leukocyte Esterase (Negative) Urine RBC (0-5) /hpf Urine WBC (0-5) /hpf Ur Squamous Epith Cells (0-4) /hpf Influenza Type A (PCR) Not Detected (Not Detectd) Influenza Type B (PCR) Not Detected (Not Detectd) RSV (PCR) Not Detected (Not Detectd) SARS-CoV-2 (PCR) Not Detected (Not Detectd) 11/21/24 11/21/24 Range/Units 20:21 20:45 WBC (4.50-10.00) 10*3/uL RBC (4.10-5.20) 10*6/uL Hgb (12.0-15.0) g/dL Hct (37.2-46.3) % MCV (80.0-97.0) fL MCH (27.0-32.0) pg MCHC (32.0-37.0) g/dL Plt Count (140-440) 10*3/uL MPV (9.5-12.2) fL Immature Gran % (Auto) % Neutrophils % % Lymphocytes % % Monocytes % % Eosinophils % % Basophils % % Immature Gran # (0.00-0.04) 10*3/uL Neutrophils # (1.80-7.70) 10*3/uL Lymphocytes # (0.90-5.00) 10*3/uL Monocytes # (0.20-1.00) 10*3/uL Eosinophils # (0.04-0.35) 10*3/uL Basophils # (0.00-0.10) 10*3/uL Sodium (137-145) mmol/L Potassium (3.5-5.1) mmol/L Chloride (98-107) mmol/L Carbon Dioxide (22-30) mmol/L Anion Gap mmol/L BUN (7-17) mg/dL Creatinine (0.52-1.04) mg/dL Est GFR (CKD-EPI)AfAm (>60 ml/min/1.73 sqM) Est GFR (CKD-EPI)NonAf (>60 ml/min/1.73 sqM) Glucose (74-99) mg/dL Plasma Lactic Acid Gio 1.0 (0.7-2.0) mmol/L Calcium (8.4-10.2) mg/dL Urine Color Colorless Urine Appearance Clear (Clear) Urine pH 7.0 (5.0-8.0) Ur Specific [place] 1.016 (1.001-1.035) Urine Protein Negative (Negative) Urine Glucose (UA) Negative (Negative) Urine Ketones Negative (Negative) Urine Blood Negative (Negative) Urine Nitrite Negative (Negative) Urine Bilirubin Negative (Negative) Urine Urobilinogen <2.0 (<2.0) mg/dL Ur Leukocyte Esterase Moderate H (Negative) Urine RBC 2 (0-5) /hpf Urine WBC 3 (0-5) /hpf Ur Squamous Epith Cells 1 (0-4) /hpf Influenza Type A (PCR) (Not Detectd) Influenza Type B (PCR) (Not Detectd) RSV (PCR) (Not Detectd) SARS-CoV-2 (PCR) (Not Detectd) Disposition Clinical Impression: URI (upper respiratory infection) Disposition: HOME SELF-CARE Condition: Good Instructions (If sedation given, give patient instructions): Upper Respiratory Infection (ED) Is patient prescribed a controlled substance at d/c from ED?: No Referrals: Reynold Esquivel MD [Primary Care Provider] - 1-2 days Time of Disposition: 21:03
[2024-11-21] MEDS: SODIUM CHLORIDE 0.9% 1,000 ML IV STA (20:22)
[2024-11-21] MEDS: KETOROLAC 15 MG/ML 1 ML VIAL IVP STA (20:22)
[2024-11-21 20:40] LABS: Basophils # (A) 0.01 10*3/uL (0.00-0.10); Basophils % (A) 0.2 %; Eosinophils # (A) 0.00 10*3/uL (0.04-0.35); Eosinophils % (A) 0.0 %; HCT 37.8 % (37.2-46.3); HGB 12.3 g/dL (12.0-15.0); Lymphocytes # (A) 0.64 10*3/uL (0.90-5.00); Lymphocytes % (A) 14.2 %; MCH 26.6 pg (27.0-32.0); MCHC 32.5 g/dL (32.0-37.0); MCV 81.8 fL (80.0-97.0); Monocytes # (A) 0.43 10*3/uL (0.20-1.00); Monocytes % (A) 9.5 %; Neutrophils # (A) 3.43 10*3/uL (1.80-7.70); Neutrophils % (A) 75.9 %; Platelet Count 201 10*3/uL (140-440); RBC 4.62 10*6/uL (4.10-5.20); RDW 14.7 % (11.5-14.5); WBC 4.52 10*3/uL (4.50-10.00)
[2024-11-21 20:52] LABS: African American GFR (CKD) 63 (>60 ml/min/1.73 sqM); Anion Gap 10 mmol/L; Blood Urea Nitrogen 12 mg/dL (7-17); Calcium 9.0 mg/dL (8.4-10.2); Carbon Dioxide 24 mmol/L (22-30); Chloride 104 mmol/L (98-107); Glucose 106 mg/dL (74-99); Non-African American GFR(CKD) 54 (>60 ml/min/1.73 sqM); Potassium 4.1 mmol/L (3.5-5.1); Sodium 138 mmol/L (137-145)
[2024-11-21 20:54] LABS: RSV Not Detected (Not Detectd)
--- NOTE | 2024-11-21 20:56 | XR ---
EXAMINATION TYPE: XR chest 2V DATE OF EXAM: 11/21/2024 8:52 PM COMPARISON: None. CLINICAL INDICATION: Female, 69 years old with history of cough; [facility] TECHNIQUE: XR chest 2V Frontal and lateral views of the chest. FINDINGS: Lungs/Pleura: There is no evidence of pleural effusion, focal consolidation, or pneumothorax. Pulmonary vascularity: Unremarkable. Heart/mediastinum: Cardiomediastinal silhouette is unremarkable. Musculoskeletal: No acute osseous pathology. Other findings: None IMPRESSION: No acute cardiopulmonary disease/process. [facility], , 11/21/2024 8:53 PM
[2024-11-21 20:59] LABS: Bilirubin,Urine Negative (Negative); Blood,Urine Negative (Negative); Color,Urine Colorless; Glucose,Urine (UA) Negative (Negative); Ketones,Urine Negative (Negative); Leukocyte Esterase,Urine Moderate (Negative); Nitrite,Urine Negative (Negative); PH, Urine 7.0 (5.0-8.0); Protein,Urine Negative (Negative); RBC,Urine 2 /hpf (0-5); Specific Gravity,Urine 1.016 (1.001-1.035); Squamous Epithelial Cell,Urine 1 /hpf (0-4); Urobilinogen,Urine <2.0 mg/dL (<2.0); WBC,Urine 3 /hpf (0-5)
[2024-11-21 21:51] VITALS: BP 134/75; PULSE 82; TEMP 100.5
== END 2024-11-21 21:57 | disposition home or self-care (01) ==
LOC: EC 19:27
DX: J06.9 Acute upper respiratory infection, unspecified (principal); Z11.52 Encounter for screening for COVID-19; Z87.891 Personal history of nicotine dependence; Z88.1 Allergy status to other antibiotic agents; Z88.2 Allergy status to sulfonamides; Z91.09 Other allergy status, other than to drugs and biological substances; Z88.8 Allergy status to other drugs, medicaments and biological substances
CPT/HCPCS: 36415; 80048; 83605; 85025; 81001; 87636; 71046; 99285; 96374; 96361; J1885